=== PATIENT | female | born 1990 | race Caucasian/White ===

== ENCOUNTER 2017-03-12 03:59 | Inpatient (IN) | payer MEDICARE, MEDICAID ==
[~2017-03-12] VITALS: Ht 152.4 cm; Wt 68.0 kg
[2017-03-12 04:28] LABS: KETONES,URINE 3+ (NEGATIVE); LEUKOCYTE ESTERASE ,URINE 3+ (NEGATIVE); NITRITE,URINE POSITIVE (NEGATIVE); PH,URINE 6 (5-9); PROTEIN,URINE 3+ (NEGATIVE); UROBILINOGEN,URINE 4 MG/DL (NORMAL)
--- NOTE | 2017-03-12 04:28 | ED GU-Female ---
General Stated Complaint: POSS UTI,POSS CONSTIPATION Source: patient Exam Limitations: other (NO PREVIOUS VISITS TO THIS HOSPITAL) History of Present Illness Time seen by provider: 04:20 Initial Comments C/O LEFT SIDED ABDOMINAL PAIN / LEFT FLANK PAIN X 1 WEEK HAS SOME URINARY URGENCY, FREQUENCY AND SOME BURNING ON URINATION-HAS BEEN TAKING OTC AZO AND THOSE SYMPTOMS HAVE IMPROVED, BUT ABDOMINAL/FLANK PAIN HAS GOTTEN WORSE NO FEVER, SWEATS OR CHILLS NO NAUSEA/VOMITING NO BM X 2 DAYS, BUT DOES NOT REALLY FEEL CONSTIPATED LMP--UNKNOWN--PT HAS NO IDEA WHEN LMP WAS--"MAYBE MAY--I REALLY HAVE NO IDEA". STATES PERIODS ARE ALWAYS IRREGULAR. NO CONTROL. HAS NOT DONE HOME TEST PT IS AB 0. PCP: NONE Allergies and Home Medications Allergies Coded Allergies: No Known Drug Allergies (Unverified , 03/12/17) Constitutional: no symptoms reported Respiratory: no symptoms reported Cardiovascular: no symptoms reported Gastrointestinal: see HPI, abdominal pain, constipation, No nausea, No vomiting Genitourinary: see HPI, burning, dysuria, frequency, flank pain, urgency Musculoskeletal: see HPI, back pain Skin: no symptoms reported Psychiatric/Neurological: No Symptoms Reported Endocrine: No Symptoms Reported Hematologic/Lymphatic: No Symptoms Reported Past Tijkpss-Rqhrwi-Peycad Hx Patient Social History Alcohol Use: Occasionally Uses Recreational Drug Use: Yes (+IV METH USE, STATES "HAVE USED JUST ABOUT EVERYTHING" INCLUDING COCAINE, RX DRUGS--XANAX, VALIUM, HYDROCODONE, OTHERS. PLUS THC USE. ) Smoking Status: Current Everyday Smoker (1/2 PPD) Recent Foreign Travel: No Contact w/Someone Who Travel: No Surgeries History of Surgeries: Yes ( X 2 ) Surgeries: Section Respiratory History of Respiratory Disorde: No Cardiovascular History of Cardiac Disorders: No Neurological History of Neurological Disord: No Reproductive System Hx : 2 Hx Para: 2 Hx Total # of Abortions (Spona: 0 Hx Reproductive Disorders: Yes (IRREGULAR PERIODS) Female Reproductive Disorders: Menstrual Problems Genitourinary History of Genitourinary Disor: Yes Genitourinary Disorders: Bladder Infection Gastrointestinal History of Gastrointestinal Di: No Musculoskeletal History of Musculoskeletal Dis: No Endocrine History of Endocrine Disorders: No HEENT History of HEENT Disorders: No Cancer History of Cancer: No Psychosocial History of Psychiatric Problem: No Integumentary History of Skin or Integumenta: No Blood Transfusions History of Blood Disorders: No Physical Exam Vital Signs Vital Sign - Last 12Hours 03/12/17 04:11 Temp 99.6 Pulse 119 Resp 20 B/P (MAP) 108/70 Pulse Ox 97 O2 Delivery Room Air Capillary Refill : General Appearance: WD/WN, no apparent distress, other (ANXIOUS, CONSTANT MOVEMENTS, TREMULOUS, SPEECH RAPID. DIRTY, UNKEMPT ) Neck: normal inspection Cardiovascular: no murmur, tachycardia Respiratory: normal breath sounds, no respiratory distress, no accessory muscle use Gastrointestinal: normal bowel sounds, soft, tenderness (SUPRAPUBIC/FUNDAL AND LEFT MID ABDOMEN AND LEFT FLANK TENDERNESS), other (FUNDUS APPEARS TO BE 1 FB BELOW UMBILICUS) Back: CVA tenderness (L) Extremities: no pedal edema, normal capillary refill, other (APPEARS TO HAVE 3 RECENT PUNCTURE SITES TO RIGHT AC WITH BRUISING AROUND EACH, AND VEIN UNDERLYING THESE IS VERY HARD/SCLEROTIC, BUT NON-TENDER. ) Neurologic/Psychiatric: inspector bullet slugs II-XII nml as tested, no motor/sensory deficits, alert, oriented x 3 Skin: normal color, warm/dry Focused Exam Evaluation Lactate Level Laboratory Tests 03/12/17 05:20: Lactic Acid Level 1.39 Lactic Acid Level Laboratory Tests Test 03/12/17 05:20 Lactic Acid Level 1.39 MMOL/L (0.50-2.00) Progress/Results/Core Measures Results/Orders Lab Results Laboratory Tests Test 03/12/17 04:12 03/12/17 04:30 03/12/17 05:20 Range/Units Urine Color YELLOW Urine Clarity VERY CLOUDY H Urine pH 6 5-9 Urine Specific [place] 1.010 L 1.016-1.022 Urine Protein 3+ H NEGATIVE Urine Glucose (UA) NEGATIVE NEGATIVE Urine Ketones 3+ H NEGATIVE Urine Nitrite POSITIVE H NEGATIVE Urine Bilirubin 1+ H NEGATIVE Urine Urobilinogen 4 H NORMAL MG/DL Urine Leukocyte Esterase 3+ H NEGATIVE Urine RBC (Auto) 5+ H NEGATIVE Urine RBC 2-5 H /HPF Urine WBC 25-50 H /HPF Urine Squamous Epithelial Cells 5-10 /HPF Urine Crystals NONE /LPF Urine Bacteria FEW H /HPF Urine Casts NONE /LPF Urine Mucus NEGATIVE /LPF Urine Culture Indicated YES Urine Opiates Screen NEGATIVE NEGATIVE Urine Oxycodone Screen NEGATIVE NEGATIVE Urine Methadone Screen NEGATIVE NEGATIVE Urine Propoxyphene Screen NEGATIVE NEGATIVE Urine Barbiturates Screen NEGATIVE NEGATIVE Ur Tricyclic Antidepressants Screen NEGATIVE NEGATIVE Urine Phencyclidine Screen NEGATIVE NEGATIVE Urine Amphetamines Screen POSITIVE H NEGATIVE Urine Methamphetamines Screen POSITIVE H NEGATIVE Urine Benzodiazepines Screen NEGATIVE NEGATIVE Urine Cocaine Screen NEGATIVE NEGATIVE Urine Cannabinoids Screen POSITIVE H NEGATIVE White Blood Count 27.9 H 4.3-11.0 10^3/uL Red Blood Count 3.59 L 4.35-5.85 10^6/uL Hemoglobin 11.2 L 11.5-16.0 G/DL Hematocrit 31 L 35-52 % Mean Corpuscular Volume 87 80-99 FL Mean Corpuscular Hemoglobin 31 25-34 PG Mean Corpuscular Hemoglobin Concent 36 32-36 G/DL Red Cell Distribution Width 12.7 10.0-14.5 % Platelet Count 276 130-400 10^3/uL Mean Platelet Volume 9.9 7.4-10.4 FL Neutrophils (%) (Auto) 87 H 42-75 % Lymphocytes (%) (Auto) 4 L 12-44 % Monocytes (%) (Auto) 9 0-12 % Eosinophils (%) (Auto) 0 0-10 % Basophils (%) (Auto) 0 0-10 % Neutrophils # (Auto) 24.2 H 1.8-7.8 X 10^3 Lymphocytes # (Auto) 1.1 1.0-4.0 X 10^3 Monocytes # (Auto) 2.6 H 0.0-1.0 X 10^3 Eosinophils # (Auto) 0.0 0.0-0.3 10^3/uL Basophils # (Auto) 0.0 0.0-0.1 10^3/uL Neutrophils % (Manual) 87 % Lymphocytes % (Manual) 1 % Monocytes % (Manual) 7 % Eosinophils % (Manual) 0 % Basophils % (Manual) 0 % Band Neutrophils 5 % Blood Morphology Comment NORMAL Sodium Level 131 L 135-145 MMOL/L Potassium Level 3.4 L 3.6-5.0 MMOL/L Chloride Level 97 L 98-107 MMOL/L Carbon Dioxide Level 20 L 21-32 MMOL/L Anion Gap 14 5-14 MMOL/L Blood Urea Nitrogen 7 7-18 MG/DL Creatinine 0.73 0.60-1.30 MG/DL Estimat Glomerular Filtration Rate > 60 BUN/Creatinine Ratio 10 Glucose Level 100 70-105 MG/DL Calcium Level 8.7 8.5-10.1 MG/DL Total Bilirubin 1.2 H 0.1-1.0 MG/DL Aspartate Amino Transf (AST/SGOT) 19 5-34 U/L Alanine Aminotransferase (ALT/SGPT) 14 0-55 U/L Alkaline Phosphatase 106 40-136 U/L Total Protein 6.6 6.4-8.2 GM/DL Albumin 3.0 L 3.2-4.5 GM/DL Amylase Level 31 25-125 U/L Lipase 8 8-78 U/L Human Chorionic Gonadotropin, Quant [id number] H <5 MIU/ML Lactic Acid Level 1.39 0.50-2.00 MMOL/L My Orders Orders - YASMINE DICKINSON DO Ua Culture If Indicated (03/12/17 04:21) Urine Bedside (03/12/17 04:21) Saline Lock/Iv-Start (03/12/17 04:28) Amylase (03/12/17 04:28) Cbc With Automated Diff (03/12/17 04:28) Comprehensive Metabolic Panel (03/12/17 04:28) Drug Screen Stat (Urine) (03/12/17 04:28) Hcg,Quantitative (03/12/17 04:28) Lipase (03/12/17 04:28) Abo Rh Type (03/12/17 04:28) Urine Culture (03/12/17 04:12) Manual Differential (03/12/17 04:30) Lactic Acid Analyzer (03/12/17 05:02) Blood Culture (03/12/17 05:02) Us Renal Bilateral [id number] (03/12/17 05:04) Ceftriaxone Injection (Rocephin Injectio (03/12/17 05:15) Us Ob Preg Late(14-40wks)[id number] (03/12/17 04:28) Ekg Tracing (03/12/17 05:28) Monitor-Rhythm Ecg Trace Only (03/12/17 05:28) Vital Signs/I&O Vital Sign - Last 12Hours 03/12/17 04:11 Temp 99.6 Pulse 119 Resp 20 B/P (MAP) 108/70 Pulse Ox 97 O2 Delivery Room Air Progress Note : Progress Note URINE HCG + AFTER INITIALLY DENYING ANY HISTORY OF DRUG USE, NOW ADMITS TO DRUG USE, INCLUDING RECENT IV METH USE "A COUPLE OF DAYS AGO", HOWEVER, "TRACK SWIFT" TO RIGHT AC APPEAR TO BE MORE RECENT AND PT'S BEHAVIOR INDICATES MORE RECENT USE. NO DETERIORATION IN PT'S CONDITION DURING ER STAY HEART RATE DOWN <100 AND BP REMAINED IN NORMAL RANGE DURING ER STAY. FHT'S 184 BY DOPPLER ECG Initial ECG Impression Time: 05:36 Initial ECG Rate: 97 Initial ECG Rhythm: Normal Sinus Initial ECG Impression: Normal Initial ECG Comparisson: No Previous ECG Available Diagnostic Imaging Comments RENAL ULTRASOUND--MILD RIGHT HYDRONEPHROSIS, OTHERWISE NO ACUTE PROCESS, PER [facility] REPORT VIA FAX @ [phone] OB ULTRASOUND--NORMAL IUP 18 WEEKS GESTATION, FHR 179--PER [facility] REPORT VIA FAX @ [phone] Reviewed: Reviewed by Me Departure Communication (Admissions) Progress Notes [id number]--SPOKE WITH DR. LONGORIA, FINANCIAL PLANNING ASSISTANT FOR OB UNASSIGNED. ACCEPTS PT FOR ADMIT. ORDERS NOTED Impression Impression: Primary Impression: Sepsis Additional Impressions: Pyelonephritis affecting in second trimester NEW DX OF AT 18 WEEKS GESTATION ILLICIT DRUG USE- IV USE Electrolyte imbalance Disposition: ADMITTED INPATIENT Condition: Stable Admissions Decision to Admit Reason: Admit from ER (General) Decision to Admit/Date: Mar 12, 2017 Time/Decision to Admit Time: 05:10 Departure-Patient Inst. Referrals: NO,LOCAL PHYSICIAN (PCP) Primary Care Physician YASMINE DICKINSON DO Mar 12, 2017 04:28
[2017-03-12 04:35] LABS: BILIRUBIN,URINE 1+ (NEGATIVE)
[2017-03-12 04:36] LABS: WBC,URINE 25-50 /HPF
[2017-03-12 04:45] LABS: BASOPHILS % (AUTO) 0 % (0-10); EOSINOPHILS % (AUTO) 0 % (0-10); LYMPHOCYTES # (AUTO) 1.1 X 10^3 (1.0-4.0); LYMPHOCYTES % (AUTO) 4 % (12-44); MEAN CORPUSCULAR HEMOGLOBIN 31 PG (25-34); MEAN CORPUSCULAR HGB CONC 36 G/DL (32-36); MEAN CORPUSCULAR VOLUME 87 FL (80-99); MEAN PLATELET VOLUME 9.9 FL (7.4-10.4); MONOCYTES # (AUTO) 2.6 X 10^3 (0.0-1.0); MONOCYTES % (AUTO) 9 % (0-12); NEUTROPHILS # (AUTO) 24.2 X 10^3 (1.8-7.8); NEUTROPHILS % (AUTO) 87 % (42-75); PLATELET COUNT 276 10^3/uL (130-400); RED BLOOD COUNT 3.59 10^6/uL (4.35-5.85); RED CELL DISTRIBUTION WIDTH 12.7 % (10.0-14.5); WHITE BLOOD COUNT 27.9 10^3/uL (4.3-11.0)
[2017-03-12 05:08] LABS: ALANINE AMINOTRANSFERASE 14 U/L (0-55); AMYLASE 31 U/L (25-125); ANION GAP 14 MMOL/L (5-14); ASPARTATE AMINO TRANSFERASE 19 U/L (5-34); BILIRUBIN,TOTAL 1.2 MG/DL (0.1-1.0); BLOOD UREA NITROGEN 7 MG/DL (7-18); BUN/CREATININE RATIO 10; CALCIUM 8.7 MG/DL (8.5-10.1); CARBON DIOXIDE 20 MMOL/L (21-32); CHLORIDE 97 MMOL/L (98-107); CREATININE SERUM 0.73 MG/DL (0.60-1.30); GFR ESTIMATED > 60; GLUCOSE 100 MG/DL (70-105); LIPASE 8 U/L (8-78); POTASSIUM 3.4 MMOL/L (3.6-5.0); SODIUM 131 MMOL/L (135-145); TOTAL PROTEIN 6.6 GM/DL (6.4-8.2)
[2017-03-12 05:10] LABS: BAND NEUTROPHILS 5 %; BASOPHILS % (MANUAL) 0 %; EOSINOPHILS % (MANUAL) 0 %; LYMPHOCYTES % (MANUAL) 1 %; NEUTROPHILS % (MANUAL) 87 %
[2017-03-12] MEDS ORDERED: cefTRIAXone INJECTION 2,000 MG in NS (IVPB) 50 ML IV ONE (05:15)
[2017-03-12 06:45] VITALS: BP 117/62
[2017-03-12] MEDS ORDERED: NOREPINEPHRINE 4 MG in D5W 250 ML (IVPB) 250 ML IV SCH (07:01)
[2017-03-12] MEDS ORDERED: NS IV 1000 ML 1,000 ML IV SCH (07:01)
[2017-03-12 08:00] VITALS: BP 95/57
--- NOTE | 2017-03-12 08:14 | Diagnostic Imaging Report ---
INDICATION: UTI, abdominal pain. TECHNIQUE: Multiple real-time grayscale images were obtained over the kidneys in various projections. FINDINGS: The right kidney measures 10.8 x 5.1 x 5.5 cm, and the left kidney measures 12.4 x 5.9 x 5.1 cm. Both kidneys demonstrate normal renal cortical thickness and echogenicity. There is mild right hydronephrosis likely hydronephrosis of . There is no mass or calculi. Neither ureteral jet is visualized in the bladder. IMPRESSION: Mild right hydronephrosis likely hydronephrosis of , otherwise unremarkable sonographic appearance of the kidneys. Dictated by: Dictated on workstation # [id number]
--- NOTE | 2017-03-12 08:17 | Diagnostic Imaging Report ---
INDICATION: Followup. TECHNIQUE: Multiple real-time grayscale images were obtained over the gravid uterus. COMPARISON: None FINDINGS: There is a single living intrauterine . The biometry correlates with gestational age of 18 weeks 0 days. Heart rate is 179 beats per minute. The placenta is posterior. There is no evidence of previa. There are no adnexal masses. There is no free pelvic fluid. IMPRESSION: Single living intrauterine with sonographically estimated gestational age of 18 weeks 0 days and estimated date of confinement 08/13/2017. Biometrical measurements are as follows: Biparietal 3.9 cm, age 17 weeks 6 days. Head circumference 14.8 cm, age 18 weeks 0 days. Abdominal circumference 12.1 cm, age 17 weeks 6 days. Femur length 2.6 cm, age 18 weeks 0 days. Sonographic estimate age: 18 weeks 0 days. Sonographic estimated date of delivery: 08/13/17. Estimated Weight: 212 gm (+/- 30 gm). LMP percentile: n/a%. heart rate: 179 beats per minute. number: 1 of 1. Dictated by: Dictated on workstation # [id number]
[2017-03-12] MEDS: D5 1/2 NS W/KCL 20 MEQ/L 1,000 ML IV SCH ×4 (08:53→22:46)
--- NOTE | 2017-03-12 11:41 | History & Physicial (CHS) ---
HPI History of Present Illness: This is a 26 yo who presented to the ER w/ c/o abdominal and back pain for the past week. Pt was found to be , pt was unaware of . US confirmed 18wk GA viable fetus. UA c/w UTI. Pt UDS positive for meth/amph and THC. ER reported tract whaley in the L antecubital space though pt is adamant that she has never used IV drugs. Pt reports she has used meth, valium and THC. Per ER report has hx of cocaine use as well though pt denies this today. Pt has not had care with with as she did not know she was . Denies movement to date. Source: patient Date seen by provider: Mar 12, 2017 Time Seen by Provider: 09:00 Attending Physician Tad Whalen DO PCP No,Local Physician Consult Date of Admission Mar 12, 2017 at 05:10 Home Medications Home Medications Reviewed patient Home Medication Reconciliation Form Allergies Coded Allergies: No Known Drug Allergies (Unverified , 03/12/17) GKJ-Pinufz-Zivoot Hx Patient Social History Number of Children: 2 Alcohol Use: Occasionally Uses Recreational Drug Use: Yes (+IV METH USE, STATES "HAVE USED JUST ABOUT EVERYTHING" INCLUDING COCAINE, RX DRUGS--XANAX, VALIUM, HYDROCODONE, OTHERS. PLUS THC USE. ) Smoking Status: Current Everyday Smoker (1/2 PPD) Type Used: Cigarettes 2nd Hand Smoke Exposure: No Recent Foreign Travel: No Contact w/other who traveled: No Recent Hopitalizations: No Recent Infectious Disease Expo: No Past Medical History Hx of hypothyroidism - pt reports she use to take Synthroid but has not taken for several years, TSH not recently checked. Illicit drug use - currently positive for meth/amph, THC PSH: C/S x 2 Review of Systems (CHC) Constitutional: fever EENTM: dental problems Respiratory: no symptoms reported Cardiovascular: no symptoms reported Gastrointestinal: abdominal pain (generalized), No nausea, No vomiting Genitourinary: No dysuria, No frequency, other (flank pain L>R) : Yes (18 wk by US) Musculoskeletal: back pain Skin: no symptoms reported Psychiatric/Neurological: Anxiety Reviewed Test Results Reviewed Test Results Lab Laboratory Tests 03/12/17 04:12: Urine Color YELLOW, Urine Clarity VERY CLOUDYH, Urine pH 6, Urine Specific [place] 1.010L, Urine Protein 3+H, Urine Glucose (UA) NEGATIVE, Urine Ketones 3+ H, Urine Nitrite POSITIVEH, Urine Bilirubin 1+H, Urine Urobilinogen 4H, Urine Leukocyte Esterase 3+H, Urine RBC (Auto) 5+H, Urine RBC 2-5H, Urine WBC 25-50H, Urine Squamous Epithelial Cells 5-10, Urine Crystals NONE, Urine Bacteria FEWH, Urine Casts NONE, Urine Mucus NEGATIVE, Urine Culture Indicated YES, Urine Opiates Screen NEGATIVE, Urine Oxycodone Screen NEGATIVE, Urine Methadone Screen NEGATIVE, Urine Propoxyphene Screen NEGATIVE, Urine Barbiturates Screen NEGATIVE, Ur Tricyclic Antidepressants Screen NEGATIVE, Urine Phencyclidine Screen NEGATIVE, Urine Amphetamines Screen POSITIVEH, Urine Methamphetamines Screen POSITIVEH, Urine Benzodiazepines Screen NEGATIVE, Urine Cocaine Screen NEGATIVE, Urine Cannabinoids Screen POSITIVEH 03/12/17 04:30: White Blood Count 27.9H, Red Blood Count 3.59L, Hemoglobin 11.2L, Hematocrit 31L , Mean Corpuscular Volume 87, Mean Corpuscular Hemoglobin 31, Mean Corpuscular Hemoglobin Concent 36, Red Cell Distribution Width 12.7, Platelet Count 276, Mean Platelet Volume 9.9, Neutrophils (%) (Auto) 87H, Lymphocytes (%) (Auto) 4L , Monocytes (%) (Auto) 9, Eosinophils (%) (Auto) 0, Basophils (%) (Auto) 0, Neutrophils # (Auto) 24.2H, Lymphocytes # (Auto) 1.1, Monocytes # (Auto) 2.6H, Eosinophils # (Auto) 0.0, Basophils # (Auto) 0.0, Neutrophils % (Manual) 87, Lymphocytes % (Manual) 1, Monocytes % (Manual) 7, Eosinophils % (Manual) 0, Basophils % (Manual) 0, Band Neutrophils 5, Blood Morphology Comment NORMAL, Sodium Level 131L, Potassium Level 3.4L, Chloride Level 97L, Carbon Dioxide Level 20L, Anion Gap 14, Blood Urea Nitrogen 7, Creatinine 0.73, Estimat Glomerular Filtration Rate > 60, BUN/Creatinine Ratio 10, Glucose Level 100, Calcium Level 8.7, Total Bilirubin 1.2H, Aspartate Amino Transf (AST/SGOT) 19, Alanine Aminotransferase (ALT/SGPT) 14, Alkaline Phosphatase 106, Total Protein 6.6, Albumin 3.0L, Amylase Level 31, Lipase 8, Human Chorionic Gonadotropin, Quant [id number] 03/12/17 05:20: Lactic Acid Level 1.39 Radiology Date of Exam: 03/12/17 US OB PREG LATE([id number] INDICATION: Followup. TECHNIQUE: Multiple real-time grayscale images were obtained over the gravid uterus. COMPARISON: None FINDINGS: There is a single living intrauterine . The biometry correlates with gestational age of 18 weeks 0 days. Heart rate is 179 beats per minute. The placenta is posterior. There is no evidence of previa. There are no adnexal masses. There is no free pelvic fluid. IMPRESSION: Single living intrauterine with sonographically estimated gestational age of 18 weeks 0 days and estimated date of confinement 08/13/2017. Biometrical measurements are as follows: Biparietal 3.9 cm, age 17 weeks 6 days. Head circumference 14.8 cm, age 18 weeks 0 days. Abdominal circumference 12.1 cm, age 17 weeks 6 days. Femur length 2.6 cm, age 18 weeks 0 days. Sonographic estimate age: 18 weeks 0 days. Sonographic estimated date of delivery: 08/13/17. Estimated Weight: 212 gm (+/- 30 gm). LMP percentile: n/a%. heart rate: 179 beats per minute. number: 1 of 1. Date of Exam: 03/12/17 US RENAL BILATERAL [id number] INDICATION: UTI, abdominal pain. TECHNIQUE: Multiple real-time grayscale images were obtained over the kidneys in various projections. FINDINGS: The right kidney measures 10.8 x 5.1 x 5.5 cm, and the left kidney measures 12.4 x 5.9 x 5.1 cm. Both kidneys demonstrate normal renal cortical thickness and echogenicity. There is mild right hydronephrosis likely hydronephrosis of . There is no mass or calculi. Neither ureteral jet is visualized in the bladder. IMPRESSION: Mild right hydronephrosis likely hydronephrosis of , otherwise unremarkable sonographic appearance of the kidneys. Physical Exam-(CHC) Physical Exam Vital Signs VS - Last 72 Hours, by Label 9/5/17 9/5/17 9/5/17 9/5/17 04:11 06:34 06:34 06:45 Temp 99.6 99.6 99.6 99.3 Pulse 119 96 96 77 Resp 20 20 20 19 B/P (MAP) 108/70 108/70 117/62 Pulse Ox 97 97 97 94 O2 Delivery Room Air Room Air Room Air Room Air 03/12/17 03/12/17 03/12/17 03/12/17 08:00 08:33 12:00 13:00 Temp 97.1 102.2 Pulse 103 103 103 105 Resp 20 24 B/P (MAP) 95/57 98/66 Pulse Ox 99 99 O2 Delivery Room Air Room Air 03/12/17 03/12/17 03/12/17 03/13/17 16:00 19:00 20:00 00:00 Temp 97.3 96.6 101.1 Pulse 86 90 94 107 Resp 21 23 20 B/P (MAP) 93/60 85/57 110/55 Pulse Ox 99 100 92 O2 Delivery Room Air Room Air Room Air 03/13/17 03/13/17 03/13/17 03/13/17 00:39 01:00 04:00 07:05 Temp 101.1 95.7 Pulse 104 87 93 Resp 18 B/P (MAP) 96/52 Pulse Ox 90 O2 Delivery Room Air 03/13/17 08:00 Temp 97.0 Pulse 93 Resp 20 B/P (MAP) 101/66 Pulse Ox 98 O2 Delivery Room Air Capillary Refill : Less Than 3 Seconds General Appearance: WD/WN, no apparent distress (anxious/irritable) Respiratory: lungs clear, normal breath sounds Cardiovascular: regular rate, rhythm Gastrointestinal: normal bowel sounds, non tender, soft Back: no CVA tenderness Extremities: no pedal edema Neurologic/Psychiatric: alert, oriented x 3, other (anxious/irritable) Skin: normal color, warm/dry Assessment/Plan Assessment/Plan Admission Dx 1. Pyelonephritis 2. - 18 wk GA 3. Illicit drug use Plan 1. Pyelonephritis meeting sepsis criteria w/ leukocytosis, fever, tachycardia - Started on Rocephin IV on admission - Lactic acid wnl; BP normal for 2. - 18 wk GA - unknown at time of presentation - US confirmed viable, 18 wk fetus - will schedule w/ OB on DC as pt is repeat c/s 3. Illicit drug use - Discussed [facility] Addiction [facility] - pt is interested in treatment. - Pt adamantly denies IVDU; tract whaley reported by ER staff, pt stating the whaley were from blood draw attempts in the ER - HIV, Hep C pending - Passenger Conductor consulted. Diagnosis/Problems: Clinical Quality Measures DVT/VTE Risk/Contraindication: RFS Level Per Nursing on Admit: 2=Moderate Risk Score Comment: SCDs ordered, pt not a candidate for Lovenox due to TAD WHALEN DO Mar 12, 2017 11:41
[2017-03-12 12:00] VITALS: BP 98/66
[2017-03-12] MEDS: ACETAMINOPHEN 500 MG TAB (TYLENOL) PO PRN (13:02)
[2017-03-12 16:00] VITALS: BP 93/60
[2017-03-12 20:00] VITALS: BP 85/57
[2017-03-13] VITALS: BP 110/55
[2017-03-13] MEDS: ACETAMINOPHEN 500 MG TAB (TYLENOL) PO PRN (00:39)
[2017-03-13 04:00] VITALS: BP 96/52
[2017-03-13 06:01] LABS: BASOPHILS % (AUTO) 0 % (0-10); EOSINOPHILS % (AUTO) 0 % (0-10); LYMPHOCYTES % (AUTO) 6 % (12-44); MEAN CORPUSCULAR HEMOGLOBIN 30 PG (25-34); MEAN CORPUSCULAR HGB CONC 34 G/DL (32-36); MEAN CORPUSCULAR VOLUME 90 FL (80-99); MEAN PLATELET VOLUME 10.3 FL (7.4-10.4); MONOCYTES # (AUTO) 1.3 X 10^3 (0.0-1.0); MONOCYTES % (AUTO) 8 % (0-12); NEUTROPHILS # (AUTO) 14.1 X 10^3 (1.8-7.8); NEUTROPHILS % (AUTO) 86 % (42-75); PLATELET COUNT 262 10^3/uL (130-400); RED BLOOD COUNT 3.22 10^6/uL (4.35-5.85); RED CELL DISTRIBUTION WIDTH 12.8 % (10.0-14.5); WHITE BLOOD COUNT 16.5 10^3/uL (4.3-11.0)
[2017-03-13] MEDS: D5 1/2 NS W/KCL 20 MEQ/L 1,000 ML IV SCH ×2 (06:06→15:15)
[2017-03-13 06:23] LABS: ALANINE AMINOTRANSFERASE 14 U/L (0-55); ALBUMIN 2.6 GM/DL (3.2-4.5); ANION GAP 10 MMOL/L (5-14); ASPARTATE AMINO TRANSFERASE 16 U/L (5-34); BILIRUBIN,TOTAL 0.4 MG/DL (0.1-1.0); BLOOD UREA NITROGEN 6 MG/DL (7-18); BUN/CREATININE RATIO 10; CALCIUM 8.5 MG/DL (8.5-10.1); CARBON DIOXIDE 20 MMOL/L (21-32); CHLORIDE 106 MMOL/L (98-107); CREATININE SERUM 0.63 MG/DL (0.60-1.30); GFR ESTIMATED > 60; GLUCOSE 79 MG/DL (70-105); POTASSIUM 3.3 MMOL/L (3.6-5.0); SODIUM 136 MMOL/L (135-145); TOTAL PROTEIN 5.9 GM/DL (6.4-8.2)
[2017-03-13] MEDS ORDERED: cefTRIAXone INJECTION 1,000 MG in NS (IVPB) 50 ML IV SCH (07:00)
[2017-03-13 07:49] LABS: HIV AG AB SCREEN Non-Reactive (Non-Reactive)
[2017-03-13 07:50] LABS: HCV INDEX >11.00 Index (0.00-0.79)
[2017-03-13 08:00] VITALS: BP 101/66
[2017-03-13] MEDS ORDERED: KCL 20 MEQ TAB (K-DUR) PO NR (09:00)
[2017-03-13] MEDS ORDERED: PRENATAL VITAMIN 1 EA TAB PO SCH (09:00)
[2017-03-13] MEDS ORDERED: FERROUS SULF 325 MG (IRON) TAB PO SCH (09:00)
[2017-03-13] MEDS ORDERED: CATHETER FLUSH 10 ML SYR IV PRN (09:15)
--- NOTE | 2017-03-13 09:37 | Progress Note (SOAP) ---
Subjective Subjective/Events-last exam Pt much improved this am. Less agitated, states she is feeling much better. Tmax 101 overnight. Review of Systems Date Seen by Provider: Mar 13, 2017 Time Seen by Provider: 09:00 Objective Exam Last Set of Vital Signs Vital Signs Date Time Temp Pulse Resp B/P (MAP) Pulse Ox O2 Delivery O2 Flow Rate FiO2 03/13/17 08:00 97.0 93 20 101/66 98 Room Air Capillary Refill : Less Than 3 Seconds I&O Intake and Output 03/14/17 00:00 Intake Total 800 ml Balance 800 ml Intake Oral 800 ml # Voids 8 # Bowel Movements 2 General: Alert, Oriented X3, Cooperative Psych/Mental Status: Mood NL Results/Procedures Lab Laboratory Tests 03/13/17 05:38: White Blood Count 16.5H, Red Blood Count 3.22L, Hemoglobin 9.8L, Hematocrit 29L , Mean Corpuscular Volume 90, Mean Corpuscular Hemoglobin 30, Mean Corpuscular Hemoglobin Concent 34, Red Cell Distribution Width 12.8, Platelet Count 262, Mean Platelet Volume 10.3, Neutrophils (%) (Auto) 86H, Lymphocytes (%) (Auto) 6L , Monocytes (%) (Auto) 8, Eosinophils (%) (Auto) 0, Basophils (%) (Auto) 0, Neutrophils # (Auto) 14.1H, Lymphocytes # (Auto) 1.0, Monocytes # (Auto) 1.3H, Eosinophils # (Auto) 0.0, Basophils # (Auto) 0.0, Sodium Level 136, Potassium Level 3.3L, Chloride Level 106, Carbon Dioxide Level 20L, Anion Gap 10, Blood Urea Nitrogen 6L, Creatinine 0.63, Estimat Glomerular Filtration Rate > 60, BUN/ Creatinine Ratio 10, Glucose Level 79, Calcium Level 8.5, Magnesium Level 1.7L, Total Bilirubin 0.4, Aspartate Amino Transf (AST/SGOT) 16, Alanine Aminotransferase (ALT/SGPT) 14, Alkaline Phosphatase 108, Total Protein 5.9L, Albumin 2.6L Microbiology 03/12/17 Urine Culture - Final, Complete Escherichia Coli Radiology Date of Exam: 03/12/17 US OB PREG LATE([id number] INDICATION: Followup. TECHNIQUE: Multiple real-time grayscale images were obtained over the gravid uterus. COMPARISON: None FINDINGS: There is a single living intrauterine . The biometry correlates with gestational age of 18 weeks 0 days. Heart rate is 179 beats per minute. The placenta is posterior. There is no evidence of previa. There are no adnexal masses. There is no free pelvic fluid. IMPRESSION: Single living intrauterine with sonographically estimated gestational age of 18 weeks 0 days and estimated date of confinement 08/13/2017. Biometrical measurements are as follows: Biparietal 3.9 cm, age 17 weeks 6 days. Head circumference 14.8 cm, age 18 weeks 0 days. Abdominal circumference 12.1 cm, age 17 weeks 6 days. Femur length 2.6 cm, age 18 weeks 0 days. Sonographic estimate age: 18 weeks 0 days. Sonographic estimated date of delivery: 08/13/17. Estimated Weight: 212 gm (+/- 30 gm). LMP percentile: n/a%. heart rate: 179 beats per minute. number: 1 of 1. Date of Exam: 03/12/17 US RENAL BILATERAL [id number] INDICATION: UTI, abdominal pain. TECHNIQUE: Multiple real-time grayscale images were obtained over the kidneys in various projections. FINDINGS: The right kidney measures 10.8 x 5.1 x 5.5 cm, and the left kidney measures 12.4 x 5.9 x 5.1 cm. Both kidneys demonstrate normal renal cortical thickness and echogenicity. There is mild right hydronephrosis likely hydronephrosis of . There is no mass or calculi. Neither ureteral jet is visualized in the bladder. IMPRESSION: Mild right hydronephrosis likely hydronephrosis of , otherwise unremarkable sonographic appearance of the kidneys. Assessment/Plan Assessment/Plan Admission Dx 1. Pyelonephritis 2. - 18 wk GA 3. Illicit drug use Plan 1. Pyelonephritis meeting sepsis criteria w/ leukocytosis, fever, tachycardia; E. coli on urine culture ADM- Started on Rocephin IV on admission - Lactic acid wnl; BP normal for 03/13 - pt improving - wbc down to 16; fever overnight; E. coli sensitive to Rocephin - continue IV antibx until fever free then change to Macrobid po for DC 2. - 18 wk GA - unknown at time of presentation - US confirmed viable, 18 wk fetus - PNV started - will schedule w/ OB on DC as pt is repeat c/s 3. Illicit drug use - Discussed [facility] Addiction Treatment Program - pt is interested in treatment. - Pt adamantly denies IVDU; tract whaley reported by ER staff, pt stating the whaley were from blood draw attempts in the ER - HIV, Hep C pending - Clinical Evaluator consulted. 03/13 - pt very interested in ATS program at [facility] - will arrange intake on DC 4. Hep C Antibody positive; LFT wnl 03/13 - discussed results w/ patient. Will obtain quant to determine if active Hep C infection 5. Anemia of 03/13 - start iron 6. Hypokalemia 03/13 - KCL po, check magnesium. 7. Hx of Hypothyroidism - check TSH 8. Anxiety - pt interested in Behavioral Health Services 9. Poor dentition - will scheduled w/ [facility] Dental at DC Diagnosis/Problems: Clinical Quality Measures DVT/VTE Risk/Contraindication: Risk Factor Score Per Nursin RFS Level Per Nursing on Admit: 2=Moderate Risk Score Comment: SCDs ordered, pt not a candidate for Lovenox due to TAD WHALEN DO Mar 13, 2017 09:37
[2017-03-13 12:00] VITALS: BP 100/58
[2017-03-13 16:36] VITALS: BP 110/62
[2017-03-15 15:12] LABS: HEPATITIS C LOG ML 2.96 Log/mL (<=1.07)
== END 2017-03-13 16:55 | disposition home or self-care (01) | DRG 781 ==
LOC: ER 04:05 → 4TH 05:10
PROVIDERS: ADMIT Family Medicine; ATTEND Family Medicine
DX: O98.812 Other maternal infectious and parasitic diseases complicating pregnancy, second trimester (principal); O23.02 Infections of kidney in pregnancy, second trimester; A41.9 Sepsis, unspecified organism; N12 Tubulo-interstitial nephritis, not specified as acute or chronic; O34.211 Maternal care for low transverse scar from previous cesarean delivery; F15.90 Other stimulant use, unspecified, uncomplicated; F12.90 Cannabis use, unspecified, uncomplicated; O99.012 Anemia complicating pregnancy, second trimester; O99.282 Endocrine, nutritional and metabolic diseases complicating pregnancy, second trimester; E03.9 Hypothyroidism, unspecified; O99.332 Smoking (tobacco) complicating pregnancy, second trimester; F17.210 Nicotine dependence, cigarettes, uncomplicated; E87.6 Hypokalemia; O99.342 Other mental disorders complicating pregnancy, second trimester; F41.9 Anxiety disorder, unspecified; Z3A.18 18 weeks gestation of pregnancy
CPT/HCPCS: 36415; 76770; 76805; 80053; 80074; 80306; 81000; 82150; 83605; 83690; 83735; 84443; 84702; 84703; 85007; 85025; 85027; 86703; 86900; 86901; 87040; 87088; 87186; 87522; 93005; 93041; 96374

== ENCOUNTER 2017-06-28 16:56 | Outpatient (CLI) | payer MEDICAID, MEDICARE ==
[~2017-06-28] VITALS: Ht 152.4 cm; Wt 68.5 kg
[2017-06-28 17:15] VITALS: BP 114/82
[2017-06-28] MEDS ORDERED: D5 LR IV SOLUTION 1,000 ML IV SCH (18:00)
[2017-06-28] MEDS ORDERED: NS IV 500 ML 500 ML IV ONE (18:00)
[2017-06-28] MEDS ORDERED: ONDANSETRON 4 MG/2 ML (SDV) Z0FRAN IVP ONE (18:00)
[2017-06-28 18:44] LABS: BASOPHILS % (AUTO) 0 % (0-10); EOSINOPHILS % (AUTO) 0 % (0-10); LYMPHOCYTES # (AUTO) 1.3 X 10^3 (1.0-4.0); LYMPHOCYTES % (AUTO) 7 % (12-44); MEAN CORPUSCULAR HEMOGLOBIN 27 PG (25-34); MEAN CORPUSCULAR HGB CONC 33 G/DL (32-36); MEAN CORPUSCULAR VOLUME 81 FL (80-99); MEAN PLATELET VOLUME 10.3 FL (7.4-10.4); MONOCYTES # (AUTO) 0.5 X 10^3 (0.0-1.0); MONOCYTES % (AUTO) 3 % (0-12); NEUTROPHILS # (AUTO) 17.7 X 10^3 (1.8-7.8); NEUTROPHILS % (AUTO) 91 % (42-75); PLATELET COUNT 655 10^3/uL (130-400); RED BLOOD COUNT 4.42 10^6/uL (4.35-5.85); RED CELL DISTRIBUTION WIDTH 13.7 % (10.0-14.5); WHITE BLOOD COUNT 19.5 10^3/uL (4.3-11.0)
[2017-06-28 19:02] LABS: BAND NEUTROPHILS 4 %; BASOPHILS % (MANUAL) 0 %; EOSINOPHILS % (MANUAL) 0 %; LYMPHOCYTES % (MANUAL) 4 %; NEUTROPHILS % (MANUAL) 88 %
[2017-06-28 19:07] LABS: ALANINE AMINOTRANSFERASE 58 U/L (0-55); ALBUMIN 3.3 GM/DL (3.2-4.5); ANION GAP 17 MMOL/L (5-14); ASPARTATE AMINO TRANSFERASE 49 U/L (5-34); BILIRUBIN,TOTAL 0.4 MG/DL (0.1-1.0); BLOOD UREA NITROGEN 16 MG/DL (7-18); BUN/CREATININE RATIO 24; CALCIUM 9.8 MG/DL (8.5-10.1); CARBON DIOXIDE 16 MMOL/L (21-32); CHLORIDE 104 MMOL/L (98-107); CREATININE SERUM 0.68 MG/DL (0.60-1.30); GFR ESTIMATED > 60; GLUCOSE 84 MG/DL (70-105); POTASSIUM 4.7 MMOL/L (3.6-5.0); SODIUM 137 MMOL/L (135-145); TOTAL PROTEIN 8.6 GM/DL (6.4-8.2)
[2017-06-28 20:00] VITALS: BP 106/64
[2017-06-28 21:14] LABS: BILIRUBIN,URINE NEGATIVE (NEGATIVE); KETONES,URINE 4+ (NEGATIVE); LEUKOCYTE ESTERASE ,URINE 3+ (NEGATIVE); NITRITE,URINE POSITIVE (NEGATIVE); PH,URINE 6.5 (5-9); PROTEIN,URINE 2+ (NEGATIVE); UROBILINOGEN,URINE 1 MG/DL (NORMAL)
[2017-06-28 21:22] LABS: WBC,URINE 50-100 /HPF
[2017-06-28] MEDS ORDERED: cefTRIAXone INJECTION 1,000 MG in NS (IVPB) 50 ML IV ONE (22:15)
[2017-06-28] MEDS ORDERED: cefTRIAXone 1 GM (ROCEPHIN) VIAL ONE (22:21)
[2017-06-28] MEDS ORDERED: NS (IVPB) 50 ML ONE (22:22)
[2017-06-29 07:31] LABS: BASOPHILS % (AUTO) 0 % (0-10); EOSINOPHILS % (AUTO) 0 % (0-10); LYMPHOCYTES # (AUTO) 1.3 X 10^3 (1.0-4.0); LYMPHOCYTES % (AUTO) 10 % (12-44); MEAN CORPUSCULAR HEMOGLOBIN 27 PG (25-34); MEAN CORPUSCULAR HGB CONC 33 G/DL (32-36); MEAN CORPUSCULAR VOLUME 82 FL (80-99); MEAN PLATELET VOLUME 10.3 FL (7.4-10.4); MONOCYTES % (AUTO) 8 % (0-12); NEUTROPHILS # (AUTO) 10.3 X 10^3 (1.8-7.8); NEUTROPHILS % (AUTO) 82 % (42-75); PLATELET COUNT 541 10^3/uL (130-400); RED BLOOD COUNT 3.62 10^6/uL (4.35-5.85); RED CELL DISTRIBUTION WIDTH 13.6 % (10.0-14.5); WHITE BLOOD COUNT 12.6 10^3/uL (4.3-11.0)
[2017-06-29 08:10] VITALS: BP 90/52
[2017-06-29] MEDS ORDERED: CEPH250C PO (09:35)
--- NOTE | 2017-06-29 09:40 | History & Physical-OB ---
OB - Chief Complaint & HPI Date/Time Date of Admission: Date of Admission: Time Seen by Provider: 09:00 Chief Complaint/History OB-Reason for Admission/Chief: Hx : 3 Hx Para: 2 Expected Date of Delivery: Aug 16, 2017 Gestational Age in Weeks: 33 Other reason for admission: this 26-year-old female presented last night with acute onset nausea vomiting. She was also noted to have an elevated white count, and a urine dipstick suggestive of urinary tract infection. She reports this morning that she is feeling much better and is able to tolerate oral hydration and crackers. She has been not using the bathroom. She reports almost complete resolution of the nausea she was having yesterday. She is asking for discharge as she is feeling much better Admission Nurse Assessment Rev: Yes History of Labs A pos Antibody neg RI RPR NR HBsAg NR HIV NR GC neg GBS unknown Allergies and Home Medications Allergies Coded Allergies: No Known Drug Allergies (Unverified , 03/12/17) Home Medications Cephalexin 250 Mg Capsule, 500 MG PO QID for 7 Days, #28 Prescribed by: MONSE BALES on 06/29/17 0935 OB - History Hx of Present Care: Yes Ultrasounds: Other (late care, ultrasound ordered) Obstetrical Complications: Other (late care) Medical Complications: Other Other Concerns: hepatitis C, polysubstance abuse Obstetrical History Hx : 3 Hx Para: 2 Patient Past Medical History Hx of hypothyroidism - pt reports she use to take Synthroid but has not taken for several years, TSH not recently checked. Illicit drug use - currently positive for meth/amph, THC PSH: C/S x 2 Social History/Family History Recent Infectious Disease Expo: No 2nd Hand Smoke Exposure: No OB - Admission Exam Physical Exam Vitals: Vital Signs 06/28/17 06/29/17 20:00 01:11 Temp 98.6 Pulse 90 Resp 18 B/P (MAP) 106/64 (78) O2 Delivery Room Air HEENT: NCAT Heart: Rhythm Normal Lungs: Clear Abdomen: Gravid Extremities: Normal Reflexes: Normal Membranes: Intact Heart Rate: 130's Accelerations: Accelerations Present Decelerations: No Decelerations Short Term Variability: Present [facility] Variability: Average (6-25) Contractions on Admission: >10 Minutes Apart Intensity: Mild (patient does not appreciate rare mild contractions) Labs Laboratory Tests Test 06/28/17 18:32 06/28/17 21:00 06/29/17 07:04 Range/Units White Blood Count 19.5 H 12.6 H 4.3-11.0 10^3/uL Red Blood Count 4.42 3.62 L 4.35-5.85 10^6/uL Hemoglobin 11.7 9.7 L 11.5-16.0 G/DL Hematocrit 36 30 L 35-52 % Mean Corpuscular Volume 81 82 80-99 FL Mean Corpuscular Hemoglobin 27 27 25-34 PG Mean Corpuscular Hemoglobin Concent 33 33 32-36 G/DL Red Cell Distribution Width 13.7 13.6 10.0-14.5 % Platelet Count 655 H 541 H 130-400 10^3/uL Mean Platelet Volume 10.3 10.3 7.4-10.4 FL Neutrophils (%) (Auto) 91 H 82 H 42-75 % Lymphocytes (%) (Auto) 7 L 10 L 12-44 % Monocytes (%) (Auto) 3 8 0-12 % Eosinophils (%) (Auto) 0 0 0-10 % Basophils (%) (Auto) 0 0 0-10 % Neutrophils # (Auto) 17.7 H 10.3 H 1.8-7.8 X 10^3 Lymphocytes # (Auto) 1.3 1.3 1.0-4.0 X 10^3 Monocytes # (Auto) 0.5 1.0 0.0-1.0 X 10^3 Eosinophils # (Auto) 0.0 0.0 0.0-0.3 10^3/uL Basophils # (Auto) 0.0 0.0 0.0-0.1 10^3/uL Neutrophils % (Manual) 88 % Lymphocytes % (Manual) 4 % Monocytes % (Manual) 4 % Eosinophils % (Manual) 0 % Basophils % (Manual) 0 % Band Neutrophils 4 % Blood Morphology Comment NORMAL Sodium Level 137 135-145 MMOL/L Potassium Level 4.7 3.6-5.0 MMOL/L Chloride Level 104 98-107 MMOL/L Carbon Dioxide Level 16 L 21-32 MMOL/L Anion Gap 17 H 5-14 MMOL/L Blood Urea Nitrogen 16 7-18 MG/DL Creatinine 0.68 0.60-1.30 MG/DL Estimat Glomerular Filtration Rate > 60 BUN/Creatinine Ratio 24 Glucose Level 84 70-105 MG/DL Calcium Level 9.8 8.5-10.1 MG/DL Total Bilirubin 0.4 0.1-1.0 MG/DL Aspartate Amino Transf (AST/SGOT) 49 H 5-34 U/L Alanine Aminotransferase (ALT/SGPT) 58 H 0-55 U/L Alkaline Phosphatase 267 H 40-136 U/L Total Protein 8.6 H 6.4-8.2 GM/DL Albumin 3.3 3.2-4.5 GM/DL Urine Color YELLOW Urine Clarity SLIGHTLY CLOUDY Urine pH 6.5 5-9 Urine Specific [place] 1.015 L 1.016-1.022 Urine Protein 2+ H NEGATIVE Urine Glucose (UA) NEGATIVE NEGATIVE Urine Ketones 4+ H NEGATIVE Urine Nitrite POSITIVE H NEGATIVE Urine Bilirubin NEGATIVE NEGATIVE Urine Urobilinogen 1 NORMAL MG/DL Urine Leukocyte Esterase 3+ H NEGATIVE Urine RBC (Auto) 1+ H NEGATIVE Urine RBC 0-2 /HPF Urine WBC 50-100 H /HPF Urine Crystals NONE /LPF Urine Bacteria LARGE H /HPF Urine Casts NONE /LPF Urine Mucus NEGATIVE /LPF Urine Culture Indicated YES Urine Opiates Screen NEGATIVE NEGATIVE Urine Oxycodone Screen NEGATIVE NEGATIVE Urine Methadone Screen NEGATIVE NEGATIVE Urine Propoxyphene Screen NEGATIVE NEGATIVE Urine Barbiturates Screen NEGATIVE NEGATIVE Ur Tricyclic Antidepressants Screen NEGATIVE NEGATIVE Urine Phencyclidine Screen NEGATIVE NEGATIVE Urine Amphetamines Screen NEGATIVE NEGATIVE Urine Methamphetamines Screen NEGATIVE NEGATIVE Urine Benzodiazepines Screen POSITIVE H NEGATIVE Urine Cocaine Screen NEGATIVE NEGATIVE Urine Cannabinoids Screen POSITIVE H NEGATIVE OB - Assessment/Plan/Diagnosis Assessment Assessment: observation Plan Other Plan continue the patient on oral Keflex 500 mg 4 times a day for 7 days. labor precautions reviewed Patient told to return to care if symptoms recur or if any further concerns should arise She has a follow-up appointment scheduled for next week in the office Discharge Diagnosis Diagnosis: 26-year-old at 33 weeks gestation Acute gastroenteritis-improved Urinary tract infection History of polysubstance abuse with positive UDS today Hepatitis C carrier MONSE BALES DO Jun 29, 2017 9:40 am
[2017-06-29] MEDS ORDERED: CEPHALEXIN 250 MG (KEFLEX) CAP PO SCH (13:00)
== END 2017-06-29 10:15 ==
LOC: WSo 16:56 → LDRP 16:57 → WSo 06-29 10:15
PROVIDERS: ATTEND Obstetrics & Gynecology
DX: O99.613 Diseases of the digestive system complicating pregnancy, third trimester (principal); K52.9 Noninfective gastroenteritis and colitis, unspecified; O23.43 Unspecified infection of urinary tract in pregnancy, third trimester; O99.323 Drug use complicating pregnancy, third trimester; F15.10 Other stimulant abuse, uncomplicated; F12.10 Cannabis abuse, uncomplicated; O99.283 Endocrine, nutritional and metabolic diseases complicating pregnancy, third trimester; E03.9 Hypothyroidism, unspecified; O98.413 Viral hepatitis complicating pregnancy, third trimester; B19.20 Unspecified viral hepatitis C without hepatic coma; O09.33 Supervision of pregnancy with insufficient antenatal care, third trimester; O34.219 Maternal care for unspecified type scar from previous cesarean delivery; Z3A.33 33 weeks gestation of pregnancy
CPT/HCPCS: 36415; 80053; 80306; 81000; 85007; 85025; 85027; 87088; 87186; 87804; 96361; 96374; 96375; 99214

== ENCOUNTER 2017-08-04 09:58 | Outpatient (CLI) | payer MEDICARE ==
[~2017-08-04] VITALS: Ht 152.4 cm; Wt 73.9 kg
[~2017-08-04 09:58] MED LIST: CEPH250C PO
[2017-08-04 10:19] VITALS: BP 108/69
[2017-08-04 10:42] LABS: BILIRUBIN,URINE NEGATIVE (NEGATIVE); CLARITY,URINE SLIGHTLY CLOUDY; COLOR,URINE YELLOW; GLUCOSE, URINE (UA) NEGATIVE (NEGATIVE); KETONES,URINE NEGATIVE (NEGATIVE); LEUKOCYTE ESTERASE ,URINE 1+ (NEGATIVE); NITRITE,URINE NEGATIVE (NEGATIVE); PH,URINE 6 (5-9); PROTEIN,URINE 1+ (NEGATIVE); UROBILINOGEN,URINE NORMAL (NORMAL)
[2017-08-04 10:45] VITALS: BP 111/69
[2017-08-04 11:18] LABS: BACTERIA,URINE FEW /HPF; WBC,URINE RARE /HPF
[2017-08-04] MEDS ORDERED: INFLUENZA TRIvalent 2017-2018 0.5 ML/45 MCG SYR IM ONE (11:45)
[2017-08-04 13:34] LABS: AMPHETAMINE SCREEN, URINE NEGATIVE (NEGATIVE); BARBITURATE SCREEN URINE NEGATIVE (NEGATIVE); BENZODIAZEPINES SCREEN URINE POSITIVE (NEGATIVE); CANNABINOID SCREEN, URINE POSITIVE (NEGATIVE); COCAINE SCREEN URINE NEGATIVE (NEGATIVE); METHADONE STAT NEGATIVE (NEGATIVE); METHAMPHETAMINE SCREEN URINE S NEGATIVE (NEGATIVE); OPIATE SCREEN URINE NEGATIVE (NEGATIVE); OXYCODONE STAT NEGATIVE (NEGATIVE); PROPOXYPHENE STAT NEGATIVE (NEGATIVE); TRICYCLIC ANTIDEPRESSANTS SCRE NEGATIVE (NEGATIVE)
--- NOTE | 2017-08-05 14:14 | Physician Query-Final Dx ---
SHAUNNA HIDALGO 08/05/17 1414: Clinic Account Progress/Dx Physician Query: Please give diagnosis Date of Service Aug 04, 2017 at 09:58 ROSELIA BRAVO DO 08/19/17 1914: Clinic Account Progress/Dx DIAGNOSIS: Diagnosis , threatened rupture of membranes vaginal discharge GWENSHAUNNA Aug 05, 2017 14:14 ROSELIA BRAVO DO Aug 19, 2017 19:14
[2017-08-07] MEDS ORDERED: ACHD5005 PO (08:20)
[2017-08-07] MEDS ORDERED: DOCU100C37 PO (08:20)
[2017-08-07] MEDS ORDERED: IBUP-1773 PO (08:20)
== END 2017-08-04 12:14 | disposition home or self-care (01) ==
LOC: WSo 09:58 → LDRP 10:01 → WSo 12:14
PROVIDERS: ATTEND Obstetrics & Gynecology
DX: O99.89 Other specified diseases and conditions complicating pregnancy, childbirth and the puerperium (principal); N89.8 Other specified noninflammatory disorders of vagina; Z3A.38 38 weeks gestation of pregnancy
CPT/HCPCS: 80306; 81000; 99214

== ENCOUNTER → 2017-08-05 | Outpatient (CLI) | payer MEDICARE ==
[~2017-08-05] MED LIST changes: +ACHD5005 PO; +DOCU100C37 PO; +IBUP-1773 PO
== END ==
LOC: PREOP 05:37
PROVIDERS: ATTEND Obstetrics & Gynecology
DX: Z01.818 Encounter for other preprocedural examination (principal); O34.211 Maternal care for low transverse scar from previous cesarean delivery

== ENCOUNTER 2017-08-06 08:42 | Inpatient (IN) | payer MEDICARE ==
[~2017-08-06] VITALS: Ht 152.4 cm; Wt 75.4 kg
[~2017-08-06 08:42] MED LIST changes: -ACHD5005 PO; -DOCU100C37 PO; -IBUP-1773 PO
[2017-08-06] MEDS ORDERED: LACTATED RINGERS 1,000 ML IV PRN (09:38)
[2017-08-06 09:42] LABS: BASOPHILS % (AUTO) 0 % (0-10); EOSINOPHILS # (AUTO) 0.1 10^3/uL (0.0-0.3); EOSINOPHILS % (AUTO) 1 % (0-10); HEMATOCRIT 33 % (35-52); HEMOGLOBIN 10.8 G/DL (11.5-16.0); LYMPHOCYTES # (AUTO) 1.7 X 10^3 (1.0-4.0); LYMPHOCYTES % (AUTO) 17 % (12-44); MEAN CORPUSCULAR HEMOGLOBIN 26 PG (25-34); MEAN CORPUSCULAR HGB CONC 33 G/DL (32-36); MEAN CORPUSCULAR VOLUME 79 FL (80-99); MEAN PLATELET VOLUME 12.2 FL (7.4-10.4); MONOCYTES # (AUTO) 0.8 X 10^3 (0.0-1.0); MONOCYTES % (AUTO) 8 % (0-12); NEUTROPHILS # (AUTO) 7.8 X 10^3 (1.8-7.8); NEUTROPHILS % (AUTO) 75 % (42-75); PLATELET COUNT 265 10^3/uL (130-400); RED BLOOD COUNT 4.22 10^6/uL (4.35-5.85); RED CELL DISTRIBUTION WIDTH 15.8 % (10.0-14.5); WHITE BLOOD COUNT 10.5 10^3/uL (4.3-11.0)
[2017-08-06 09:44] LABS: BILIRUBIN,URINE NEGATIVE (NEGATIVE); CLARITY,URINE CLEAR; COLOR,URINE YELLOW; GLUCOSE, URINE (UA) NEGATIVE (NEGATIVE); KETONES,URINE NEGATIVE (NEGATIVE); LEUKOCYTE ESTERASE ,URINE NEGATIVE (NEGATIVE); NITRITE,URINE NEGATIVE (NEGATIVE); PH,URINE 6 (5-9); PROTEIN,URINE NEGATIVE (NEGATIVE); UROBILINOGEN,URINE NORMAL (NORMAL)
[2017-08-06] MEDS ORDERED: FAMOTIDINE 20MG/2ML IV (PEPCID) IV ONE (09:45)
[2017-08-06] MEDS ORDERED: ceFAZolin 2 GM/50 ML NS 50 ML IV NR (09:45)
[2017-08-06] MEDS ORDERED: METOCLOPRAMIDE INJ 10 MG/2 ML (REGLAN) IV ONE (09:45)
[2017-08-06] MEDS ORDERED: CITRIC ACID/SOB CIT (BICITRA) 30 ML UDC PO ONE (09:45)
[2017-08-06] MEDS: LACTATED RINGERS 1,000 ML IV PRN ×2 (09:53→11:24)
[2017-08-06 09:57] LABS: RBC,URINE RARE /HPF
[2017-08-06 09:58] LABS: BACTERIA,URINE NEGATIVE /HPF
--- NOTE | 2017-08-06 10:09 | History & Physical-OB ---
OB - Chief Complaint & HPI Date/Time Date of Admission: Date of Admission: 08/06/2017 Time Seen by Provider: 10:05 Chief Complaint/History OB-Reason for Admission/Chief: Section Hx : 3 Hx Para: 2 Expected Date of Delivery: Aug 16, 2017 Gestational Age in Weeks: 38 Gestational Age in Days: 4 Indication for : desires repeat Other reason for admission: Labor with previous x 2 Admission Nurse Assessment Rev: Yes History of Labs A pos Antibody neg RI RPR NR HBsAg NR HIV NR GC neg GBS neg Allergies and Home Medications Allergies Coded Allergies: No Known Drug Allergies (Unverified , 03/12/17) Home Medications No Active Prescriptions or Reported Meds OB - History Hx of Present Care: Yes Ultrasounds: Normal mid trimester US Obstetrical Complications: None Medical Complications: Other (Hx of Hep C) Patient Past Medical History Hx of hypothyroidism - pt reports she use to take Synthroid but has not taken for several years, TSH not recently checked. Illicit drug use - currently positive for meth/amph, THC PSH: C/S x 2 Social History/Family History Recent Infectious Disease Expo: No 2nd Hand Smoke Exposure: No OB - Admission Exam Physical Exam HEENT: NCAT Heart: Rhythm Normal Lungs: Clear Abdomen: Gravid Extremities: Normal Reflexes: Normal Cervical Dilatation: 2cm Effacement: 75% Station: -1 Membranes: Intact Heart Rate: 130's Accelerations: Accelerations Present Decelerations: Variable Decelerations Short Term Variability: Present [employer] Variability: Average (6-25) Contractions on Admission: < 5 Minutes Apart Intensity: Moderate Labs Laboratory Tests Test 08/06/17 09:00 08/06/17 09:30 Range/Units Urine Color YELLOW Urine Clarity CLEAR Urine pH 6 5-9 Urine Specific [place] 1.015 L 1.016-1.022 Urine Protein NEGATIVE NEGATIVE Urine Glucose (UA) NEGATIVE NEGATIVE Urine Ketones NEGATIVE NEGATIVE Urine Nitrite NEGATIVE NEGATIVE Urine Bilirubin NEGATIVE NEGATIVE Urine Urobilinogen NORMAL NORMAL MG/DL Urine Leukocyte Esterase NEGATIVE NEGATIVE Urine RBC (Auto) NEGATIVE NEGATIVE Urine RBC RARE /HPF Urine WBC NONE /HPF Urine Squamous Epithelial Cells 5-10 /HPF Urine Crystals NONE /LPF Urine Bacteria NEGATIVE /HPF Urine Casts NONE /LPF Urine Mucus NEGATIVE /LPF Urine Culture Indicated NO White Blood Count 10.5 4.3-11.0 10^3/uL Red Blood Count 4.22 L 4.35-5.85 10^6/uL Hemoglobin 10.8 L 11.5-16.0 G/DL Hematocrit 33 L 35-52 % Mean Corpuscular Volume 79 L 80-99 FL Mean Corpuscular Hemoglobin 26 25-34 PG Mean Corpuscular Hemoglobin Concent 33 32-36 G/DL Red Cell Distribution Width 15.8 H 10.0-14.5 % Platelet Count 265 130-400 10^3/uL Mean Platelet Volume 12.2 H 7.4-10.4 FL Neutrophils (%) (Auto) 75 42-75 % Lymphocytes (%) (Auto) 17 12-44 % Monocytes (%) (Auto) 8 0-12 % Eosinophils (%) (Auto) 1 0-10 % Basophils (%) (Auto) 0 0-10 % Neutrophils # (Auto) 7.8 1.8-7.8 X 10^3 Lymphocytes # (Auto) 1.7 1.0-4.0 X 10^3 Monocytes # (Auto) 0.8 0.0-1.0 X 10^3 Eosinophils # (Auto) 0.1 0.0-0.3 10^3/uL Basophils # (Auto) 0.0 0.0-0.1 10^3/uL OB - Assessment/Plan/Diagnosis Assessment Assessment: active labor, section Plan Plan: Section Discharge Diagnosis Diagnosis: 26 yo @ 38.4 weeks Labor Previous x 2 Hx of Hep C Hypothyroidism Hx of ilicit drug use GBS neg MONSE BALES DO Aug 06, 2017 10:09 am
[2017-08-06] MEDS ORDERED: OXYTOCIN/NORMAL SALINE 500 ML IV ONE (10:26)
[2017-08-06] MEDS ORDERED: morphine PF (DURAMORPH) 10 MG/10 ML AMP ONE (10:36)
[2017-08-06] MEDS ORDERED: PHENYLEPHRINE 100 MCG/ML 10 ML (ANESTHESIA) SYR ONE (11:05)
[2017-08-06] MEDS ORDERED: LACTATED RINGERS 1,000 ML IV SCH (11:19)
[2017-08-06] MEDS ORDERED: KETOROLAC 30 MG/ML VIAL ONE (11:22)
[2017-08-06] MEDS ORDERED: NALOXONE 0.4 MG/ML 1 ML (NARCAN) VIAL IM PRN (11:30)
[2017-08-06] MEDS ORDERED: diphenhydrAMINE 50 MG/ML INJ (BENADRYL) IV PRN (11:30)
[2017-08-06] MEDS ORDERED: ONDANSETRON 4 MG/2 ML (SDV) Z0FRAN IV PRN (11:30)
[2017-08-06] MEDS ORDERED: METOCLOPRAMIDE INJ 10 MG/2 ML (REGLAN) IV PRN (11:30)
[2017-08-06] MEDS ORDERED: D5 LR IV SOLUTION 1,000 ML IV SCH (11:51)
[2017-08-06] MEDS ORDERED: KETOROLAC 30 MG/ML VIAL IVP SCH (12:00)
[2017-08-06] MEDS ORDERED: HYDROmorphone (DILAUDID) 2 MG/ML VIAL IVP PRN (12:00)
[2017-08-06] MEDS ORDERED: TETANUS,DIPTH,PERTUSS P/F (BOOSTRIX) 0.5 ML VIAL IM SCH (12:00)
[2017-08-06] MEDS ORDERED: ceFAZolin 2 GM/50 ML NS 50 ML IV ONE (12:00)
[2017-08-06] MEDS ORDERED: MEASLES,MUMPS,RUBELLA 1 EA INJ SC SCH (12:00)
[2017-08-06 12:45] VITALS: BP 102/63
[2017-08-06 13:25] VITALS: BP 112/74
[2017-08-06] MEDS ORDERED: CATHETER FLUSH 10 ML SYR IV SCH (14:00)
[2017-08-06] MEDS ORDERED: OXYTOCIN/NORMAL SALINE 500 ML IV SCH (14:15)
[2017-08-06] MEDS ORDERED: INFLUENZA TRIvalent 2017-2018 0.5 ML/45 MCG SYR IM ONE (15:15)
[2017-08-06 16:10] VITALS: BP 105/68
[2017-08-06] MEDS ORDERED: IBUPROFEN 600 MG (MOTRIN) TAB PO ONE (17:20)
--- NOTE | 2017-08-06 19:04 | OPERATIVE REPORT ---
DATE OF SERVICE: PREOPERATIVE DIAGNOSES: 1. A 26-year-old G3, P2 at 38 weeks gestation. 2. Active labor. 3. History of hepatitis C and illicit drug use. 4. Hypothyroidism. POSTOPERATIVE DIAGNOSES: 1. A 26-year-old G3, P2 at 38 weeks gestation. 2. Active labor. 3. History of hepatitis C and illicit drug use. 4. Hypothyroidism. 5. Meconium-stained fluid. PROCEDURE: Repeat low transverse section. SURGEON: Mario Bales DO ARMED GUARD: Marietta Salinas DO ANESTHESIA: Spinal with Duramorph. ESTIMATED BLOOD LOSS: 700 mL. URINE OUTPUT: 350 mL, clear at the end of the procedure. FLUIDS: 1500 mL of lactated Ringer solution. FINDINGS: Live female , weight pending with Apgars of 8 and 9. Grossly normal appearing uterus, bilateral fallopian tubes and ovaries. A nuchal cord, which was reduced x1 and meconium-stained fluid. INDICATIONS FOR PROCEDURE: This 26-year-old female is a patient who had sought care in my office. She was found to be in early active labor making early cervical change from 1 to 2 cm and franco every 2 to 3 minutes in the labor and delivery triage bay. Once this was established, I came and discussed with the patient proceeding with delivery today at 38 weeks. Risks of the procedure were discussed with the patient in detail including risks of bleeding, infection, damage to any surrounding structures including but not limited to bowel, bladder, ureter, kidneys, risk for need for hysterectomy and even were discussed with the patient. After all of her questions were answered, consent was obtained in the preoperative area and the patient was taken to the operating room. OPERATIVE REPORT IN DETAIL: Once in the operating room, spinal anesthesia was found to be adequate. She was placed in the supine position with leftward tilt, prepped and draped in normal sterile fashion. Anesthesia was tested and time-out was performed. I then proceeded with making a Pfannenstiel skin incision through the previous existing scar using a knife and carried down to the underlying fascia using Bovie cautery. The fascial incision was extended laterally using Bovie cautery. The superior aspect of the fascial incision was then grasped with Kely clamps, tented up and dissected off the underlying rectus muscles. The inferior aspect of the fascial incision was then grasped with Kely clamps, tented up and dissected off the underlying rectus muscles. Rectus muscles were dissected down the midline using blunt traction and Garcia scissors, which exposed the peritoneum which were entered bluntly and extended using blunt traction. I placed an Temo ring retractor in the peritoneal incision, which offers excellent lateral sidewall retraction. I then was able to identify the lower uterine segment, which was thinned out and made a low transverse incision to the lower uterine segment using the knife until membranes were visualized, at which point I extended the uterine incision laterally and superiorly using bandage scissors. I then performed amniotomy at that time using an Allis clamp and meconium-stained fluid was noted. The was found in the vertex presentation. With gentle fundal pressure, the 's head was elevated up out of the incision where the nares and oropharynx were bulb suctioned. Nuchal cord was reduced x1. Anterior and posterior shoulders were delivered and the infant was then delivered out the operative field where the cord was doubly clamped and cut and infant was handed off to the waiting pediatric team. Cord blood was collected, 3-vessel cord with intact placenta was delivered spontaneously thereafter. IV Pitocin was initiated to facilitate uterine contraction. Uterine fundus became firmer with bimanual massage. The uterus was then exteriorized and cleared of all endometrial clots and debris. I then proceeded with closing the uterine incision using 0 Vicryl suture in running locked fashion. A second layer of imbricating 0 Monocryl was placed. Excellent hemostasis was noted after doing so. I then placed the uterus back within the pelvis and copiously irrigated the pelvis using normal saline. Once again, there was no active bleeding noted from any of my dissection planes. I placed Interceed antiadhesive over my low transverse incision and proceeded with closing the peritoneum using 2-0 Vicryl suture in running fashion. The rectus muscle was reapproximated using 3-0 Vicryl suture in interrupted fashion. The fascia was reapproximated using 0 Vicryl suture in a running fashion. Subcutaneous tissue was reapproximated using 3-0 plain in interrupted subcutaneous stitch and skin reapproximated using 4-0 Monocryl in a running subcuticular. Dermabond was applied to incision. Sterile dressing was adhesed with white tape. Ancef 2 g were given preoperatively for infection prophylaxis. The patient tolerated the procedure well and sent to recovery area in stable condition. Job ID: [id number] DocumentID: [id number] Dictated Date: 08/06/2017 12:02:17 Student Financial Services Counselor Date: 08/06/2017 19:03:26 Dictated By: MARIO BALES DO
[2017-08-06] MEDS: DOCUSATE SODIUM 100 MG (COLACE) CAP PO SCH (20:39)
[2017-08-06 20:40] VITALS: BP 110/79
[2017-08-06] MEDS: HYDROcodone/APAP 5 MG/325 MG (LORTAB) TAB PO PRN (20:43)
[2017-08-06 23:45] VITALS: BP 100/57
[2017-08-06] MEDS: IBUPROFEN 600 MG (MOTRIN) TAB PO SCH (23:46)
[2017-08-07 04:29] VITALS: BP 97/59
[2017-08-07] MEDS: HYDROcodone/APAP 5 MG/325 MG (LORTAB) TAB PO PRN ×2 (04:29→15:31)
[2017-08-07] MEDS ORDERED: IBUPROFEN 600 MG (MOTRIN) TAB PO ONE (06:24)
[2017-08-07 06:27] LABS: BASOPHILS % (AUTO) 0 % (0-10); EOSINOPHILS # (AUTO) 0.1 10^3/uL (0.0-0.3); EOSINOPHILS % (AUTO) 1 % (0-10); HEMATOCRIT 30 % (35-52); HEMOGLOBIN 9.3 G/DL (11.5-16.0); LYMPHOCYTES # (AUTO) 1.8 X 10^3 (1.0-4.0); LYMPHOCYTES % (AUTO) 18 % (12-44); MEAN CORPUSCULAR HEMOGLOBIN 25 PG (25-34); MEAN CORPUSCULAR HGB CONC 32 G/DL (32-36); MEAN CORPUSCULAR VOLUME 80 FL (80-99); MEAN PLATELET VOLUME 12.3 FL (7.4-10.4); MONOCYTES # (AUTO) 0.7 X 10^3 (0.0-1.0); MONOCYTES % (AUTO) 7 % (0-12); NEUTROPHILS # (AUTO) 7.2 X 10^3 (1.8-7.8); NEUTROPHILS % (AUTO) 74 % (42-75); PLATELET COUNT 237 10^3/uL (130-400); RED BLOOD COUNT 3.71 10^6/uL (4.35-5.85); RED CELL DISTRIBUTION WIDTH 15.8 % (10.0-14.5); WHITE BLOOD COUNT 9.8 10^3/uL (4.3-11.0)
[2017-08-07] MEDS: IBUPROFEN 600 MG (MOTRIN) TAB PO SCH ×3 (06:42→22:08)
--- NOTE | 2017-08-07 08:19 | Progress Note-Standard ---
Standard Progress Note Progress Notes/Assess & Plan Date Seen by Provider: Aug 07, 2017 Time Seen by Provider: 08:10 Progress/Assessment & Plan Patient doing well POD 1 RLTCS. Reports good pain control. Ambulating and voiding freely, lochia is light. Vital Sign - Last 24 Hours 08/06/17 08/06/17 08/06/17 08/06/17 12:45 13:25 16:10 20:40 Temp 98.1 97.6 98.7 98.5 Pulse 77 56 77 70 Resp 18 18 18 16 B/P (MAP) 102/63 (76) 112/74 (87) 105/68 (80) 110/79 (89) Pulse Ox 99 99 99 O2 Delivery Room Air Room Air Room Air 08/06/17 08/07/17 23:45 04:29 Temp 97.6 99.1 Pulse 67 73 Resp 18 18 B/P (MAP) 100/57 (71) 97/59 (72) Pulse Ox 98 O2 Delivery Room Air Intake and Output 08/06/17 08/06/17 08/07/17 15:00 23:00 07:00 Intake Total 2300 ml 875 ml 600 ml Output Total 350 ml 275 ml 600 ml Balance 1950 ml 600 ml 0 ml Incision: c/d/i Laboratory Tests Test 08/06/17 09:00 08/06/17 09:30 08/07/17 05:47 Range/Units Urine Color YELLOW Urine Clarity CLEAR Urine pH 6 5-9 Urine Specific [place] 1.015 L 1.016-1.022 Urine Protein NEGATIVE NEGATIVE Urine Glucose (UA) NEGATIVE NEGATIVE Urine Ketones NEGATIVE NEGATIVE Urine Nitrite NEGATIVE NEGATIVE Urine Bilirubin NEGATIVE NEGATIVE Urine Urobilinogen NORMAL NORMAL MG/DL Urine Leukocyte Esterase NEGATIVE NEGATIVE Urine RBC (Auto) NEGATIVE NEGATIVE Urine RBC RARE /HPF Urine WBC NONE /HPF Urine Squamous Epithelial Cells 5-10 /HPF Urine Crystals NONE /LPF Urine Bacteria NEGATIVE /HPF Urine Casts NONE /LPF Urine Mucus NEGATIVE /LPF Urine Culture Indicated NO White Blood Count 10.5 9.8 4.3-11.0 10^3/uL Red Blood Count 4.22 L 3.71 L 4.35-5.85 10^6/uL Hemoglobin 10.8 L 9.3 L 11.5-16.0 G/DL Hematocrit 33 L 30 L 35-52 % Mean Corpuscular Volume 79 L 80 80-99 FL Mean Corpuscular Hemoglobin 26 25 25-34 PG Mean Corpuscular Hemoglobin Concent 33 32 32-36 G/DL Red Cell Distribution Width 15.8 H 15.8 H 10.0-14.5 % Platelet Count 265 237 130-400 10^3/uL Mean Platelet Volume 12.2 H 12.3 H 7.4-10.4 FL Neutrophils (%) (Auto) 75 74 42-75 % Lymphocytes (%) (Auto) 17 18 12-44 % Monocytes (%) (Auto) 8 7 0-12 % Eosinophils (%) (Auto) 1 1 0-10 % Basophils (%) (Auto) 0 0 0-10 % Neutrophils # (Auto) 7.8 7.2 1.8-7.8 X 10^3 Lymphocytes # (Auto) 1.7 1.8 1.0-4.0 X 10^3 Monocytes # (Auto) 0.8 0.7 0.0-1.0 X 10^3 Eosinophils # (Auto) 0.1 0.1 0.0-0.3 10^3/uL Basophils # (Auto) 0.0 0.0 0.0-0.1 10^3/uL Diagnosis: POD 1 RLTCS Acute blood loss anemia Hypothyroidism Hx of illicit drug use P: Replace iron Continue routine PO care MONSE BALES DO Aug 07, 2017 08:18
[2017-08-07] MEDS ORDERED: DOCU100C37 PO (08:20)
[2017-08-07] MEDS ORDERED: IBUP-1773 PO (08:20)
[2017-08-07] MEDS ORDERED: ACHD5005 PO (08:20)
--- NOTE | 2017-08-07 08:21 | Discharge Inst-Women's Service ---
Discharge Inst-Women's Serv Depart Medication/Instructions New, Converted or Re-Newed RX: RX on Chart Consults/Follow Up Additional Follow Up: Yes Orders/Referrals Dr. Monk in 7-10 days and in 6 weeks Activity Activity: Activity as Tolerated Driving Instructions: No Driving for 1 Week NO SMOKING: NO SMOKING Nothing Inside Vagina: No Douching, No [place], No Tampons Diet Discharge Diet: No Restrictions Symptoms to Report to : Bleeding Excessive, Pain Increased, Fever Over 101 Degrees F, Vaginal Bleeding Increase, Questions/Concerns For Any Problems or Questions: Contact Your Physician Skin/Wound Care Infection Signs and Symptoms: Increased Redness, Foul Odor of Wound, Increased Drainage, Skin Itchy or Has a Rash, Increased Swelling, Temperature Above 101 F Operative Area Clean and Dry: Keep Incision Clean/Dry Stitches/Ravi/Dermabond: Dermabond, Care of Stitches Bathing Instructions: MONSE Hoffman DO Aug 07, 2017 08:21
[2017-08-07 08:54] LABS: AMPHETAMINE SCREEN, URINE NEGATIVE (NEGATIVE); BARBITURATE SCREEN URINE NEGATIVE (NEGATIVE); BENZODIAZEPINES SCREEN URINE NEGATIVE (NEGATIVE); CANNABINOID SCREEN, URINE NEGATIVE (NEGATIVE); COCAINE SCREEN URINE NEGATIVE (NEGATIVE); METHADONE STAT NEGATIVE (NEGATIVE); METHAMPHETAMINE SCREEN URINE S NEGATIVE (NEGATIVE); OPIATE SCREEN URINE NEGATIVE (NEGATIVE); OXYCODONE STAT NEGATIVE (NEGATIVE); PROPOXYPHENE STAT NEGATIVE (NEGATIVE); TRICYCLIC ANTIDEPRESSANTS SCRE NEGATIVE (NEGATIVE)
[2017-08-07] MEDS: DOCUSATE SODIUM 100 MG (COLACE) CAP PO SCH ×2 (10:04→22:08)
[2017-08-07 11:00] VITALS: BP 109/71
--- NOTE | 2017-08-07 13:01 | Anesthesia-Regional Post-Op ---
Regional Patient Condition Mental Status: Alert, Oriented x3 Circulation: Same as Pre-Op Headache: Absent Sensation: Full Recovery Motor Block: Absent Post Op Complications Complications None Follow Up Care/Instructions Patient Instructions None needed. Anesthesia/Patient Condition Patient is doing well, no complaints, stable vital signs, no apparent adverse anesthesia problems. CONOR MARX DO Aug 07, 2017 13:01
[2017-08-07 16:00] VITALS: BP 107/69
[2017-08-07] MEDS ORDERED: FERROUS SULF 325 MG (IRON) TAB PO SCH (17:00)
[2017-08-07 22:08] VITALS: BP 102/64
[2017-08-08 04:06] VITALS: BP 109/69
[2017-08-08] MEDS: IBUPROFEN 600 MG (MOTRIN) TAB PO SCH ×2 (04:06→10:11)
[2017-08-08] MEDS: HYDROcodone/APAP 5 MG/325 MG (LORTAB) TAB PO PRN (08:53)
[2017-08-08 09:20] VITALS: BP 121/79
--- NOTE | 2017-08-08 10:02 | Progress Note-Standard ---
Standard Progress Note Progress Notes/Assess & Plan Date Seen by Provider: Aug 08, 2017 Time Seen by Provider: 07:50 Progress/Assessment & Plan Patient doing well POD 2 RLTCS. Reports good pain control. Ambulating and voiding freely, lochia is light. Vital Sign - Last 24 Hours 08/07/17 08/07/17 08/07/17 08/08/17 11:00 16:00 22:08 04:06 Temp 97.3 98.7 98.7 98.5 Pulse 74 72 78 69 Resp 18 B/P (MAP) 109/71 (84) 107/69 (82) 102/64 (77) 109/69 (82) Pulse Ox 100 100 99 99 O2 Delivery Room Air Room Air Room Air Room Air 08/08/17 09:20 Temp 98.3 Pulse 99 Resp 20 B/P (MAP) 121/79 (93) Pulse Ox 97 O2 Delivery Room Air Intake and Output 08/07/17 08/07/17 08/08/17 15:00 23:00 07:00 Intake Total 400 ml Balance 400 ml Incision: c/d/i Diagnosis: POD 2 RLTCS Acute blood loss anemia Hypothyroidism Hx of illicit drug use P: Replace iron Continue routine PO care DC today MONSE BALES DO Aug 08, 2017 10:01 am
== END 2017-08-08 10:30 | disposition home or self-care (01) | DRG 765 ==
LOC: WSo 08:42 → LDRP 08:43 → WS 12:20
PROVIDERS: ADMIT Obstetrics & Gynecology; ATTEND Obstetrics & Gynecology
PROC: 10D00Z1 Extraction of Products of Conception, Low, Open Approach (ICD-10-PCS; principal; 2017-08-06 10:52)
DX: O34.211 Maternal care for low transverse scar from previous cesarean delivery (principal); O90.81 Anemia of the puerperium; D62 Acute posthemorrhagic anemia; O98.42 Viral hepatitis complicating childbirth; B19.20 Unspecified viral hepatitis C without hepatic coma; O99.284 Endocrine, nutritional and metabolic diseases complicating childbirth; E03.9 Hypothyroidism, unspecified; O69.81X0 Labor and delivery complicated by cord around neck, without compression, not applicable or unspecified; Z37.0 Single live birth; Z3A.38 38 weeks gestation of pregnancy
CPT/HCPCS: 36415; 80306; 81000; 85025; 86850; 86900; 86901; 94664; 99212; 99214

== ENCOUNTER 2018-07-30 12:56 | Outpatient (CLI) | payer MEDICARE, MEDICAID ==
[~2018-07-30] VITALS: Ht 152.4 cm; Wt 75.3 kg
[~2018-07-30 12:56] MED LIST changes: +ACHD5005 PO; +DOCU100C37 PO; +IBUP-1773 PO
[2018-08-01] MEDS ORDERED: DOCU100C37 PO (07:25)
[2018-08-01] MEDS ORDERED: ACHD5005 PO (07:25)
[2018-08-01] MEDS ORDERED: IBUP-844 PO (07:25)
== END 2018-07-30 13:34 | disposition home or self-care (01) ==
LOC: PREOP 12:56
PROVIDERS: ATTEND Obstetrics & Gynecology
DX: Z01.818 Encounter for other preprocedural examination (principal)

== ENCOUNTER 2018-08-01 06:08 | Inpatient (IN) | payer MEDICARE, MEDICAID | END 2018-08-03 17:12 | disposition home or self-care (01) | LOC: LDRP 06:08 ==

== ENCOUNTER → 2021-10-25 | Outpatient (CLI) | payer MEDICARE, MEDICAID ==
[~2021-10-25] MED LIST changes: +IBUP-844 PO
[2021-10-25 17:29] LABS: BASOPHILS % (AUTO) 0 % (0-10); EOSINOPHILS # (AUTO) 0.2 10^3/uL (0.0-0.3); EOSINOPHILS % (AUTO) 3 % (0-10); HEMATOCRIT 37 % (35-52); HEMOGLOBIN 12.1 g/dL (11.5-16.0); LYMPHOCYTES # (AUTO) 1.4 10^3/uL (1.0-4.0); LYMPHOCYTES % (AUTO) 19 % (12-44); MEAN CORPUSCULAR HEMOGLOBIN 29 pg (25-34); MEAN CORPUSCULAR HGB CONC 33 g/dL (32-36); MEAN CORPUSCULAR VOLUME 88 fL (80-99); MONOCYTES # (AUTO) 0.5 10^3/uL (0.0-1.0); MONOCYTES % (AUTO) 7 % (0-12); NEUTROPHILS # (AUTO) 5.1 10^3/uL (1.8-7.8); NEUTROPHILS % (AUTO) 71 % (42-75); PLATELET COUNT 250 10^3/uL (130-400); WHITE BLOOD COUNT 7.2 10^3/uL (4.3-11.0)
== END ==
LOC: LABNPT 13:30
PROVIDERS: ATTEND Obstetrics & Gynecology
DX: Z36.89 Encounter for other specified antenatal screening (principal)
CPT/HCPCS: 85025; 86703; 86762; 86780; 86850; 86900; 86901; 87340; 87522

== ENCOUNTER 2021-12-03 02:23 | Emergency (ER) | payer MEDICARE, MEDICAID ==
[~2021-12-03] VITALS: Ht 152.4 cm; Wt 68.6 kg
[2021-12-03] MEDS ORDERED: CLON0.5T4 (02:42)
[2021-12-03] MEDS ORDERED: LEVO-130 (02:42)
[2021-12-03] MEDS ORDERED: BREX1TAB (02:42)
[2021-12-03 02:44] LABS: BILIRUBIN,URINE NEGATIVE (NEGATIVE); CLARITY,URINE CLOUDY; COLOR,URINE YELLOW; GLUCOSE, URINE (UA) NEGATIVE (NEGATIVE); KETONES,URINE NEGATIVE (NEGATIVE); LEUKOCYTE ESTERASE ,URINE 3+ (NEGATIVE); NITRITE,URINE POSITIVE (NEGATIVE); PROTEIN,URINE 2+ (NEGATIVE)
[2021-12-03 03:00] LABS: BACTERIA,URINE FEW /HPF; SQUAMOUS EPITHELIAL CELL,UR 0-2 /HPF; WBC,URINE TNTC /HPF
[2021-12-03] MEDS ORDERED: NS IV 1000 ML 1,000 ML IV SCH (03:00)
--- NOTE | 2021-12-03 03:05 | ED GU-Female ---
General Chief Complaint: - Reproductive Stated Complaint: BACK PAIN, VOMITING, Nursing Triage Note: c/o lower back pain, burning with urination x2 days. reports approx. 16weeks . Source: patient Exam Limitations: no limitations History of Present Illness Date Seen by Provider: December 03, 2021 Time Seen by Provider: 02:45 Initial Comments Patient to the ER by private conveyance from home with chief complaint of 2 days progressively worsening dysuria, right greater than left flank pain radiating down into her groins. No history of kidney stones. She has had subjective fevers without a thermometer. She has had chills. She does not take Tylenol because she has hepatitis C although she said her last quantitative viral load was low. She has not had treatment for hepatitis C yet. She has been taking cranberry pills and drinking cranberry juice. She has not had a urinalysis yet. She said her urine was rather dark and cloudy looking. G5, P4 at approximately [address] Bales for obstetrics. Allergies and Home Medications Allergies Coded Allergies: No Known Drug Allergies (Unverified , 03/12/17) Patient Home Medication List Home Medication List Reviewed: Yes Brexpiprazole (Rexulti) 1 Mg Tablet, (Reported) Entered as Reported by: VANESSA JERONIMO on 12/03/21241 Last Action: New Order Cefdinir (Cefdinir) 300 Mg Capsule, 300 MG PO BID Prescribed by: PAULA HONEYCUTT on 12/03/21350 Clonazepam (Clonazepam) 0.5 Mg Tablet, (Reported) Entered as Reported by: VANESSA JERONIMO on 12/03/21241 Last Action: New Order Docusate Sodium (Docusate Sodium) 100 Mg Capsule, 100 MG PO BID PRN for CONSTIP ATION-1ST LINE Prescribed by: MONSE BALES on 08/01/18 07 Hydrocodone Bit/Acetaminophen (Lortab 5 Mg Tablet) 1 Tab Tab, 1-2 TAB PO Q4H PRN for PAIN-MODERATE Prescribed by: MONSE BALES on 08/01/18724 Ibuprofen (Ibu) 600 Mg Tablet, 600 MG PO Q6H Prescribed by: MONSE BALES on 08/01/18724 Levothyroxine Sodium (Euthyrox) 100 Mcg Tablet, (Reported) Entered as Reported by: VANESSA JERONIMO on 5/29/22 0242 Last Action: New Order Review of Systems Review of Systems Constitutional: chills, fever, malaise EENTM: No ear discharge, No ear pain Respiratory: No cough, No short of breath Cardiovascular: No edema, No palpitations Gastrointestinal: No abdominal pain, No nausea, No vomiting Genitourinary: denies discharge, denies dysuria : Yes Expected Date of Delivery: May 08, 2022 Musculoskeletal: No back pain, No joint pain All Other Systemes Reviewed Negative Unless Noted: Yes Past Eaxsfrt-Pzqqww-Iexrln Hx Patient Social History Tobacco Use?: Yes Substance use?: No Alcohol Use?: No Pt feels they are or have been: No Seasonal Allergies Seasonal Allergies: Yes Past Medical History Surgery/Hospitalization HX: c-sect x4, hypothryoidism, anxiety, depression Surgeries: Yes ( X 3) Section Respiratory: No Cardiac: No Neurological: No Expected Date of Delivery: May 08, 2022 Last Menstrual Period: Sep 06, 2021 Reproductive Disorders: Yes (IRREGULAR PERIODS) Female Reproductive Disorders: Menstrual Problems Genitourinary: No Bladder Infection Gastrointestinal: Yes Hepatitis Musculoskeletal: No Endocrine: Yes HEENT: No Cancer: No Psychosocial: No Integumentary: No Blood Disorders: No Adverse Reaction/Blood Tranf: No Family Medical History Arthritis 19 MOTHER FHx: hypothyroidism 19 MOTHER Physical Exam Vital Signs Vital Signs - First Documented 12/03/21 02:31 Temp 36.4 Pulse 90 Resp 20 B/P (MAP) 114/70 (85) Pulse Ox 99 O2 Delivery Room Air Capillary Refill : Less Than 3 Seconds Height, Weight, BMI Height: 5'0.00" Weight: 165lbs. 8.0oz. [id number]; 29.00 BMI Method:Stated General Appearance: WD/WN, no apparent distress HEENT: PERRL/EOMI, pharynx normal Neck: full range of motion, supple, normal inspection Cardiovascular: normal peripheral pulses, regular rate, rhythm Respiratory: no respiratory distress, no accessory muscle use Gastrointestinal: normal bowel sounds, non tender, soft Back: normal inspection, no vertebral tenderness, CVA tenderness (R); No CVA tenderness (L) Extremities: non-tender, normal inspection, normal capillary refill Neurologic/Psychiatric: alert, oriented x 3, other (Anxious, pressured speech) Skin: normal color, warm/dry Progress/Results/Core Measures Suspected Sepsis SIRS Temperature: Pulse: 90 Respiratory Rate: 20 Laboratory Tests 12/03/21 03:08: White Blood Count 15.8H Blood Pressure 114 /70 Mean: 85 Laboratory Tests 12/03/21 03:08: Creatinine 0.54L, Platelet Count 218, Total Bilirubin 0.5 Results/Orders Lab Results Laboratory Tests Test 12/03/21 02:35 12/03/21 03:08 Range/Units Urine Color YELLOW Urine Clarity CLOUDY Urine pH 6.0 5-9 Urine Specific [place] 1.020 1.016-1.022 Urine Protein 2+ H NEGATIVE Urine Glucose (UA) NEGATIVE NEGATIVE Urine Ketones NEGATIVE NEGATIVE Urine Nitrite POSITIVE H NEGATIVE Urine Bilirubin NEGATIVE NEGATIVE Urine Urobilinogen 0.2 < = 1.0 MG/DL Urine Leukocyte Esterase 3+ H NEGATIVE Urine RBC (Auto) 3+ H NEGATIVE Urine RBC 5-10 H /HPF Urine WBC TNTC H /HPF Urine Squamous Epithelial Cells 0-2 /HPF Urine Crystals NONE /LPF Urine Bacteria FEW H /HPF Urine Casts NONE /LPF Urine Mucus LARGE H /LPF Urine Culture Indicated YES White Blood Count 15.8 H 4.3-11.0 10^3/uL Red Blood Count 3.84 3.80-5.11 10^6/uL Hemoglobin 11.6 11.5-16.0 g/dL Hematocrit 34 L 35-52 % Mean Corpuscular Volume 87 80-99 fL Mean Corpuscular Hemoglobin 30 25-34 pg Mean Corpuscular Hemoglobin Concent 35 32-36 g/dL Red Cell Distribution Width 13.3 10.0-14.5 % Platelet Count 218 130-400 10^3/uL Mean Platelet Volume 10.9 9.0-12.2 fL Immature Granulocyte % (Auto) 1 % Neutrophils (%) (Auto) 86 H 42-75 % Lymphocytes (%) (Auto) 6 L 12-44 % Monocytes (%) (Auto) 7 0-12 % Eosinophils (%) (Auto) 1 0-10 % Basophils (%) (Auto) 0 0-10 % Neutrophils # (Auto) 13.5 H 1.8-7.8 10^3/uL Lymphocytes # (Auto) 1.0 1.0-4.0 10^3/uL Monocytes # (Auto) 1.0 0.0-1.0 10^3/uL Eosinophils # (Auto) 0.1 0.0-0.3 10^3/uL Basophils # (Auto) 0.0 0.0-0.1 10^3/uL Immature Granulocyte # (Auto) 0.1 0.0-0.1 10^3/uL Sodium Level 137 135-145 MMOL/L Potassium Level 3.6 3.6-5.0 MMOL/L Chloride Level 105 98-107 MMOL/L Carbon Dioxide Level 18 L 21-32 MMOL/L Anion Gap 14 5-14 MMOL/L Blood Urea Nitrogen 9 7-18 MG/DL Creatinine 0.54 L 0.60-1.30 MG/DL Estimat Glomerular Filtration Rate 125 BUN/Creatinine Ratio 17 Glucose Level 102 70-105 MG/DL Calcium Level 8.7 8.5-10.1 MG/DL Corrected Calcium 9.3 8.5-10.1 MG/DL Total Bilirubin 0.5 0.1-1.0 MG/DL Aspartate Amino Transf (AST/SGOT) 14 5-34 U/L Alanine Aminotransferase (ALT/SGPT) 14 0-55 U/L Alkaline Phosphatase 63 40-136 U/L C-Reactive Protein High Sensitivity 7.33 H 0.00-0.50 MG/DL Total Protein 6.4 6.4-8.2 GM/DL Albumin 3.2 3.2-4.5 GM/DL My Orders Orders - PAULA HONEYCUTT Ua Culture If Indicated (12/03/21 02:30) Urine Bedside (12/03/21 02:30) Ed Iv/Invasive Line Start (12/03/21 02:58) Ns Iv 1000 Ml (Sodium Chloride 0.9%) (12/03/21 03:00) Cbc With Automated Diff (12/03/21 02:58) Comprehensive Metabolic Panel (12/03/21 02:58) Hs C Reactive Protein (12/03/21 02:58) Urine Culture (12/03/21 02:35) Ceftriaxone 1 Gm Pre-Mix (Rocephin 1 Gm (12/03/21 03:15) Manual Differential (12/03/21 03:08) Medications Given in ED Current Medications Medications Dose Ordered Sig/John Route Start Time Stop Time Status Last Admin Dose Admin Ceftriaxone Sodium/Dextrose 50 ml @ 100 mls/hr ONCE ONCE IV 12/03/21 03:15 12/03/21 03:44 DC 12/03/21 03:21 100 MLS/HR Vital Signs/I&O 12/03/21 02:31 Temp 36.4 Pulse 90 Resp 20 B/P (MAP) 114/70 (85) Pulse Ox 99 O2 Delivery Room Air Capillary Refill : Less Than 3 Seconds Blood Pressure Mean: 85 Progress Note : Time: 03:04 Progress Note Suspect UTI versus pyelonephritis. Plan to put a line and give her a liter of fluids and likely Rocephin. Departure Impression Primary Impression: UTI (urinary tract infection) Qualified Codes: N10 - Acute pyelonephritis Disposition: HOME, SELF-CARE Condition: Stable Departure-Patient Inst. Decision time for Depature: 03:47 Referrals: MONSE BALES DO (PCP/Family) Primary Care Physician Patient Instructions: Urinary Tract Infection, Adult (DC) Add. Discharge Instructions: Drink plenty of fluids. Cefdinir 1 capsule twice a day for the next week. Follow-up with Dr. Bales at your scheduled appointment in 2 weeks. Return to the ER for fever above 102.5, intractable vomiting or pain. Ondansetron 1 tablet every 6 hours under the tongue as needed for nausea or vomiting. All discharge instructions reviewed with patient and/or family. Voiced understanding. Scripts Ondansetron (Ondansetron Odt) 4 Mg Tab.rapdis 4 MG PO Q6H PRN for NAUSEA/VOMITING, #8 TAB 0 Refills Prov: PAULA HONEYCUTT 12/03/21 Cefdinir (Cefdinir) 300 Mg Capsule 300 MG PO BID for 7 Days, #14 CAP 0 Refills Prov: PAULA HONEYCUTT 12/03/21 Copy Copies To 1: MONSE BAELS TITUS J December 03, 2021 03:05
[2021-12-03] MEDS ORDERED: cefTRIAXone 1 GM PRE-MIX 50 ML IV ONE (03:15)
[2021-12-03 03:22] LABS: BASOPHILS % (AUTO) 0 % (0-10); EOSINOPHILS # (AUTO) 0.1 10^3/uL (0.0-0.3); EOSINOPHILS % (AUTO) 1 % (0-10); HEMATOCRIT 34 % (35-52); HEMOGLOBIN 11.6 g/dL (11.5-16.0); LYMPHOCYTES % (AUTO) 6 % (12-44); MEAN CORPUSCULAR HEMOGLOBIN 30 pg (25-34); MEAN CORPUSCULAR HGB CONC 35 g/dL (32-36); MEAN CORPUSCULAR VOLUME 87 fL (80-99); MEAN PLATELET VOLUME 10.9 fL (9.0-12.2); MONOCYTES % (AUTO) 7 % (0-12); NEUTROPHILS # (AUTO) 13.5 10^3/uL (1.8-7.8); NEUTROPHILS % (AUTO) 86 % (42-75); PLATELET COUNT 218 10^3/uL (130-400); WHITE BLOOD COUNT 15.8 10^3/uL (4.3-11.0)
[2021-12-03 03:37] LABS: ALBUMIN 3.2 GM/DL (3.2-4.5); POTASSIUM 3.6 MMOL/L (3.6-5.0)
[2021-12-03 03:38] LABS: CALCIUM 8.7 MG/DL (8.5-10.1)
[2021-12-03 03:39] LABS: TOTAL PROTEIN 6.4 GM/DL (6.4-8.2)
[2021-12-03 03:41] LABS: BILIRUBIN,TOTAL 0.5 MG/DL (0.1-1.0)
[2021-12-03 03:43] LABS: CREATININE SERUM 0.54 MG/DL (0.60-1.30)
[2021-12-03] MEDS ORDERED: CEFD300C3 PO (03:51)
[2021-12-03 03:53] VITALS: BP 97/61
[2021-12-03] MEDS ORDERED: ONDA4TAB11 PO (03:54)
[2021-12-03 04:13] LABS: BAND NEUTROPHILS 3 %; LYMPHOCYTES % (MANUAL) 9 %; MONOCYTES % (MANUAL) 3 %; NEUTROPHILS % (MANUAL) 85 %; RBC MORPH NORMAL
== END 2021-12-03 03:56 | disposition home or self-care (01) ==
LOC: EDUNIT# 02:23 → ER 02:25
DX: O23.02 Infections of kidney in pregnancy, second trimester (principal); Z3A.16 16 weeks gestation of pregnancy
CPT/HCPCS: 36415; 80053; 81000; 84703; 85007; 85027; 86141; 87077; 87088; 87186

== ENCOUNTER → 2021-12-19 | Outpatient (CLI) | payer MEDICARE, MEDICAID ==
[~2021-12-19] MED LIST changes: +BREX1TAB; +CEFD300C3 PO; +CLON0.5T4; +LEVO-130; +ONDA4TAB11 PO
--- NOTE | 2021-12-19 17:56 | Diagnostic Imaging Report ---
INDICATION: TECHNIQUE: Multiple real-time grayscale images were obtained over the gravid uterus. COMPARISON: None FINDINGS: Archuleta viable intrauterine gestation measures 19 weeks 6 days sonographic estimated date of delivery 05/09/2022. The nondilated cervix measures a length of 4.9 cm. The placenta is anterior with its caudal tip separable from the closed os by 5.6 cm, no abruption or previa. The anatomical survey shows mild ectasia of the right renal pelvis at 5.2 mm, the left is 3.7 and is within the upper limits of normal. At less than 28 weeks of gestation pyelectasis is considered dimensions greater than 4 mm. Followup exam recommended. No nati dilatation of the renal collecting systems. The amniotic fluid volume was normal.` Biometrical measurements are as follows: Biparietal 4.61 cm, age 20 weeks 0 days. Head circumference 17.44 cm, age 20 weeks 0 days. Abdominal circumference 14.69 cm, age 20 weeks 0 days. Femur length 2.92 cm, age 19 weeks 0 days. Sonographic estimate age: 19 weeks 6 days. Sonographic estimated date of delivery: 05/09/2022. Estimated Weight: 301 gm (+/- 44 gm). LMP percentile: 79%. heart rate: 158 beats per minute. number: 1 of 1. IMPRESSION: 1. Mild pyelectasis of the renal pelvis without nati hydronephrosis, followup suggested. 2. Anatomical survey otherwise normal with Archuleta viable IUP measuring 19 weeks 6 days. Dictated by: Dictated on workstation # [id number]
== END ==
LOC: RAD 12:30
PROVIDERS: ATTEND Obstetrics & Gynecology
DX: Z34.92 Encounter for supervision of normal pregnancy, unspecified, second trimester (principal); Z3A.19 19 weeks gestation of pregnancy
CPT/HCPCS: 76805

== ENCOUNTER 2022-01-24 16:18 | Emergency (ER) | payer MEDICARE, MEDICAID ==
[~2022-01-24] VITALS: Ht 155 cm; Wt 69.5 kg
--- NOTE | 2022-01-24 16:27 | ED Lower Extremity ---
General Chief Complaint: Lower Extremity Stated Complaint: FOOT INJURY Source: patient Exam Limitations: no limitations History of Present Illness Date Seen by Provider: Jan 24, 2022 Time Seen by Provider: 16:25 Initial Comments Patient is a 31-year-old female who presents ED with left lateral foot pain. This occurred around 1230. She states that she was walking down her stairs off her deck when she stepped on a On a PVC pipe rotating her left foot. She has pain to the left dorsum lateral foot with bruising and swelling. Did continue walking but did have pain and discomfort. Worsening pain with past hour. Denies taking thing for pain. No history of previous fracture. Denies any ankle pain, calf pain, fever, nausea vomit, diarrhea. Allergies and Home Medications Allergies Coded Allergies: No Known Drug Allergies (Unverified , 03/12/17) Patient Home Medication List Home Medication List Reviewed: Yes Brexpiprazole (Rexulti) 1 Mg Tablet, (Reported) Entered as Reported by: VANESSA JERONIMO on 12/03/21241 Cefdinir (Cefdinir) 300 Mg Capsule, 300 MG PO BID Prescribed by: PAULA HONEYCUTT on 12/03/21 035 Clonazepam (Clonazepam) 0.5 Mg Tablet, (Reported) Entered as Reported by: VANESSA JERONIMO on 12/03/21241 Docusate Sodium (Docusate Sodium) 100 Mg Capsule, 100 MG PO BID PRN for CONSTIPATION-1ST LINE Prescribed by: MONSE BALES on 08/01/18 07 Hydrocodone Bit/Acetaminophen (Lortab 5 Mg Tablet) 1 Tab Tab, 1-2 TAB PO Q4H PRN for PAIN-MODERATE Prescribed by: MONSE BALES on 08/01/18 07 Ibuprofen (Ibu) 600 Mg Tablet, 600 MG PO Q6H Prescribed by: MONSE BALES on 08/01/18724 Levothyroxine Sodium (Euthyrox) 100 Mcg Tablet, (Reported) Entered as Reported by: VANESSA JERONIMO on 12/03/21241 Ondansetron (Ondansetron Odt) 4 Mg Tab.rapdis, 4 MG PO Q6H PRN for NAUSEA/VOMITING Prescribed by: PAULA HONEYCUTT on 12/03/21 035 Review of Systems Constitutional: No chills, No diaphoresis, No malaise, No weakness EENTM: No blurred vision, No double vision Respiratory: No cough, No dyspnea on exertion Cardiovascular: No chest pain Gastrointestinal: No abdominal pain, No diarrhea, No nausea, No vomiting Genitourinary: No decreased output, No discharge Musculoskeletal: joint pain, joint swelling, muscle pain, muscle stiffness Skin: change in color; No change in hair/nails All Other Systems Reviewed Negative Unless Noted: Yes Past Zovgxav-Ztybbg-Jbcmiy Hx Seasonal Allergies Seasonal Allergies: Yes Past Medical History Surgery/Hospitalization HX: c-sect x4, hypothryoidism, anxiety, depression Surgeries: Yes ( X 3) Section Respiratory: No Cardiac: No Neurological: No Reproductive Disorders: Yes (IRREGULAR PERIODS) Female Reproductive Disorders: Menstrual Problems Genitourinary: No Bladder Infection Gastrointestinal: Yes Hepatitis Musculoskeletal: No Endocrine: Yes HEENT: No Cancer: No Psychosocial: No Integumentary: No Blood Disorders: No Adverse Reaction/Blood Tranf: No Family Medical History Arthritis 19 MOTHER FHx: hypothyroidism 19 MOTHER Physical Exam Vital Signs Vital Signs - First Documented 01/24/22 16:24 Temp 37.0 B/P (MAP) 120/76 (91) Pulse Ox 97 O2 Delivery Room Air Capillary Refill : Height, Weight, BMI Height: 5'0.00" Weight: 165lbs. 8.0oz. 75.028712ij; 29.00 BMI Method:Stated General Appearance: WD/WN, no apparent distress HEENT: PERRL/EOMI, normal ENT inspection, TMs normal, pharynx normal Neck: non-tender, full range of motion, supple Cardiovascular: regular rate, rhythm, no edema, no gallop, no JVD Respiratory: chest non-tender, lungs clear, normal breath sounds, no respiratory distress, no accessory muscle use Gastrointestinal: normal bowel sounds, non tender, soft Back: normal inspection, no CVA tenderness Ankles: left ankle non-tender, left ankle normal inspection, left ankle normal range of motion Feet: left foot pain, left foot soft tissue tenderness (Left dorsum and lateral foot fourth and fifth metatarsal), left foot swelling Neurologic/Psychiatric: rigging up worker II-XII nml as tested, no motor/sensory deficits, alert, oriented x 3 Skin: warm/dry Progress/Results/Core Measures Results/Orders My Orders Orders - DEVANG QUINTEROS Foot, Left, 3 Views (7/20/22 16:24) Hydrocodone/Apap 5/325 Tablet (Lortab 5 (01/24/22 16:30) Acetaminophen Tablet (Tylenol Tablet) (01/24/22 16:30) Medications Given in ED Current Medications Medications Dose Ordered Sig/John Route Start Time Stop Time Status Last Admin Dose Admin Acetaminophen 1,000 mg ONCE ONCE PO 01/24/22 16:30 01/24/22 16:31 DC 01/24/22 16:38 1,000 MG Vital Signs/I&O 01/24/22 01/24/22 16:24 16:38 Temp 37.0 37.0 B/P (MAP) 120/76 (91) Pulse Ox 97 O2 Delivery Room Air Departure Communication (PCP) Patient presents ED with left foot injury. Patient is currently and due May 15. She has no abdominal pain or vaginal bleeding. Tenderness to left lateral foot. X-ray shows acute nondisplaced fracture at the base of the fifth metatarsal. Due to her narcotics was withheld. Patient was placed in a walking boot. Provided crutches. Limit weightbearing. Orthopedic outpatient follow-up in 7 to 10 days. Ice and elevate. She scheduled follow-up with her INTERLINE CLERK tomorrow can discuss further pain management that is agreeable to his preference. Return precaution were discussed with patient. Impression Primary Impression: Fracture of foot Disposition: 01 HOME, SELF-CARE Condition: Stable Departure-Patient Inst. Decision time for Depature: 16:55 Referrals: MONSE BALES DO (PCP/Family) Primary Care Physician FRANKLIN KUMAR MD Patient Instructions: Foot Fracture (DC) Add. Discharge Instructions: Recommend following up with orthopedic in 7 to 10 days for reevaluation. Limit weightbearing. Tylenol for pain relief. Ice and elevate All discharge instructions reviewed with patient and/or family. Voiced understanding. DEVANG QUINTEROS Jan 24, 2022 16:27
[2022-01-24] MEDS ORDERED: HYDROcodone/APAP 5 MG/325 MG (LORTAB) TAB PO ONE (16:30)
[2022-01-24] MEDS ORDERED: ACETAMINOPHEN 500 MG TAB (TYLENOL) PO ONE (16:30)
--- NOTE | 2022-01-24 16:48 | Diagnostic Imaging Report ---
INDICATION: Left foot pain. TECHNIQUE: AP, oblique, and lateral views of the left foot were obtained at 4:44 PM. FINDINGS: There is an acute nondisplaced fracture at the base of the 5th metatarsal with a horizontal configuration. The remaining bony structures are intact. The joint spaces are unremarkable. IMPRESSION: Acute nondisplaced fracture at the base of the 5th metatarsal. Dictated by: Dictated on workstation # [id number]
[2022-01-24 17:30] VITALS: BP 120/76
== END 2022-01-24 17:30 | disposition home or self-care (01) ==
LOC: EDUNIT# 16:18 → ER 16:20
DX: S92.355A Nondisplaced fracture of fifth metatarsal bone, left foot, initial encounter for closed fracture (principal); X50.1XXA Overexertion from prolonged static or awkward postures, initial encounter
CPT/HCPCS: 73630; 99282; L2114

== ENCOUNTER 2022-04-24 05:37 | Outpatient (CLI) | payer MEDICARE, MEDICAID ==
[~2022-04-24] VITALS: Ht 154.9 cm; Wt 80.9 kg
[2022-04-24] MEDS ORDERED: LEVO125T6 PO (14:39)
[2022-04-24] MEDS ORDERED: [UNRECOGNIZED DRUG - OTHER] (14:40)
[2022-04-24] MEDS ORDERED: PNV-9 PO (14:40)
== END 2022-04-24 15:04 | disposition home or self-care (01) ==
LOC: PREOP 05:37
PROVIDERS: ATTEND Obstetrics & Gynecology
DX: Z01.818 Encounter for other preprocedural examination (principal)

== ENCOUNTER → 2022-04-26 | Outpatient (CLI) | payer MEDICARE, MEDICAID ==
[~2022-04-26] MED LIST changes: +LEVO125T6 PO; +PNV-9 PO; +[UNRECOGNIZED DRUG - OTHER]
[2022-04-26 15:41] LABS: URINE CREATININE FOR RATIO 16 MG/DL (30-125)
[2022-04-26 15:42] LABS: URINE PROTEIN FOR RATIO ONLY < 6 MG/DL (6-12)
== END ==
LOC: LABNPT 14:38
PROVIDERS: ATTEND Obstetrics & Gynecology
DX: O13.9 Gestational [pregnancy-induced] hypertension without significant proteinuria, unspecified trimester (principal); Z3A.00 Weeks of gestation of pregnancy not specified
CPT/HCPCS: 82570; 84156

== ENCOUNTER 2022-05-01 05:41 | Inpatient (IN) | payer OTHER, MEDICAID ==
[2022-05-01] VITALS (10 sets, daily range): BP systolic 102–145; BP diastolic 53–85
[~2022-05-01] VITALS: Ht 157.5 cm; Wt 80.4 kg
[2022-05-01] MEDS ORDERED: metroNIDAZOLE 500MG/100ML IVPB 100 ML IV ONE (05:45)
[2022-05-01] MEDS ORDERED: ceFAZolin INJECTION 1,000 MG in NS (IVPB) 50 ML IV ONE (05:45)
[2022-05-01] MEDS ORDERED: LACTATED RINGERS 1,000 ML IV PRN ×2 (06:00)
[2022-05-01] MEDS ORDERED: METOCLOPRAMIDE INJ 10 MG/2 ML (REGLAN) IV ONE (06:00)
[2022-05-01] MEDS ORDERED: FAMOTIDINE 20MG/2ML IV (PEPCID) IV ONE (06:00)
[2022-05-01] MEDS ORDERED: CITRIC ACID/SOB CIT (BICITRA) 30 ML UDC PO ONE (06:00)
[2022-05-01 06:21] LABS: BASOPHILS % (AUTO) 0 % (0-10)
[2022-05-01 06:22] LABS: EOSINOPHILS # (AUTO) 0.2 10^3/uL (0.0-0.3); EOSINOPHILS % (AUTO) 2 % (0-10); HEMATOCRIT 34 % (35-52); HEMOGLOBIN 10.8 g/dL (11.5-16.0); LYMPHOCYTES # (AUTO) 1.6 10^3/uL (1.0-4.0); LYMPHOCYTES % (AUTO) 15 % (12-44); MEAN CORPUSCULAR HEMOGLOBIN 26 pg (25-34); MEAN CORPUSCULAR HGB CONC 32 g/dL (32-36); MEAN CORPUSCULAR VOLUME 80 fL (80-99); MONOCYTES # (AUTO) 0.9 10^3/uL (0.0-1.0); MONOCYTES % (AUTO) 9 % (0-12); NEUTROPHILS # (AUTO) 7.6 10^3/uL (1.8-7.8); NEUTROPHILS % (AUTO) 73 % (42-75); PLATELET COUNT 239 10^3/uL (130-400); WHITE BLOOD COUNT 10.5 10^3/uL (4.3-11.0)
[2022-05-01 06:25] LABS: SMEAR SCAN COMMENT YES
[2022-05-01] MEDS ORDERED: FLU QUADRIvalent (6 months+) 60 mcg/0.5 ml 2022-23 (Fluzone) IM ONE (06:45)
[2022-05-01] MEDS ORDERED: OXYTOCIN PRE-MIX DRIP 1,000 ML IV ONE (07:12)
[2022-05-01] MEDS ORDERED: fentaNYL INJ 100 MCG/2 ML AMP ONE (07:12)
--- NOTE | 2022-05-01 07:21 | History & Physical-OB ---
OB - Chief Complaint & HPI Date/Time Date of Admission: Date of Admission: May 01, 2022 at 05:41 Date seen by a Provider: May 01, 2022 Time Seen by a Provider: 07:05 Chief Complaint/History OB-Reason for Admission/Chief: Section Hx : 5 Hx Para: 4 Expected Date of Delivery: May 08, 2022 Gestational Age in Weeks: 39 Gestational Age in Days: 0 Indication for : desires repeat Admission Nurse Assessment Rev: Yes Allergies and Home Medications Allergies Coded Allergies: No Known Drug Allergies (Unverified , 04/24/22) Patient Home Medication List Home Medication List Reviewed: Yes Brexpiprazole (Rexulti) 1 Mg Tablet, (Reported) Entered as Reported by: VANESSA JERONIMO on 12/03/21241 Last Action: Reviewed Clonazepam (Clonazepam) 0.5 Mg Tablet, (Reported) Entered as Reported by: VANESSA JERONIMO on 12/03/21241 Last Action: Reviewed Levothyroxine Sodium (Levothyroxine Sodium) 125 Mcg Tablet, 125 MCG PO DAILY, (Reported) Entered as Reported by: JOSIAH SHOEMAKER on 04/24/22 1439 Last Action: Reviewed Pnv 119/Iron Fum/Folic Acid ( 19 Tablet) Unknown Strength Tablet, Unknown Dose PO, (Reported) Entered as Reported by: JOSIAH SHOEMAKER on 04/24/22 1440 Last Action: Reviewed [Collagen Chews] Unknown Strength , Unknown Dose, (Reported) Entered as Reported by: JOSIAH SHOEMAKER on 04/24/22 1440 Last Action: Reviewed Discontinued Medications Cefdinir (Cefdinir) 300 Mg Capsule, 300 MG PO BID Discontinued Reason: No Longer Taking Prescribed by: PAULA HONEYCUTT on 12/03/21 035 Docusate Sodium (Docusate Sodium) 100 Mg Capsule, 100 MG PO BID PRN for CONSTIPATION-1ST LINE Discontinued Reason: No Longer Taking Prescribed by: MONSE BALES on 08/01/18 07 Hydrocodone Bit/Acetaminophen (Lortab 5 Mg Tablet) 1 Tab Tab, 1-2 TAB PO Q4H PRN for PAIN-MODERATE Discontinued Reason: No Longer Taking Prescribed by: MONSE BALES on 08/01/18 07 Ibuprofen (Ibu) 600 Mg Tablet, 600 MG PO Q6H Discontinued Reason: No Longer Taking Prescribed by: MONSE BALES on 08/01/18 0725 Levothyroxine Sodium (Euthyrox) 100 Mcg Tablet, (Reported) Discontinued Reason: Prescription changed Entered as Reported by: VANESSA JERONIMO on 12/03/21 0242 Ondansetron (Ondansetron Odt) 4 Mg Tab.rapdis, 4 MG PO Q6H PRN for NAUSEA/VOMITING Discontinued Reason: No Longer Taking Prescribed by: PAULA HONEYCUTT on 12/03/21 0354 OB - History Hx of Present Care: Yes Ultrasounds: Normal mid trimester US Obstetrical Complications: None Medical Complications: Other (Hep C carrier) Delivery History Adverse Rxn to Tranfusion: No Patient Past Medical History Hx of hypothyroidism - pt reports she use to take Synthroid but has not taken for several years, TSH not recently checked. Illicit drug use - hx PSH: C/S x 3 Social History/Family History 2nd Hand Smoke Exposure: No Immunizations Influenza Vaccine Up-to-Date: No; Not Current First/Initial COVID19 Vaccine: 12/2020 Second COVID19 Vaccination: 12/2020 COVID19 Vaccine Data Migration Lead: Moderna OB - Admission Exam Physical Exam Vitals: Vital Signs 05/01/22 06:00 Temp 37.0 Pulse 96 Resp 18 B/P (MAP) 145/85 (105) Pulse Ox 97 O2 Delivery Room Air HEENT: NCAT Heart: Rhythm Normal Lungs: Clear Abdomen: Gravid Extremities: Normal Reflexes: Normal Heart Rate: 130's Accelerations: Accelerations Present Decelerations: No Decelerations Short Term Variability: Present Alf Variability: Average (6-25) Contractions on Admission: >10 Minutes Apart Intensity: Mild Labs Laboratory Tests Test 05/01/22 05:45 05/01/22 06:05 Range/Units White Blood Count 10.5 4.3-11.0 10^3/uL Red Blood Count 4.20 3.80-5.11 10^6/uL Hemoglobin 10.8 L 11.5-16.0 g/dL Hematocrit 34 L 35-52 % Mean Corpuscular Volume 80 80-99 fL Mean Corpuscular Hemoglobin 26 25-34 pg Mean Corpuscular Hemoglobin Concent 32 32-36 g/dL Red Cell Distribution Width 13.8 10.0-14.5 % Platelet Count 239 130-400 10^3/uL Mean Platelet Volume 13.0 H 9.0-12.2 fL Immature Granulocyte % (Auto) 1 % Neutrophils (%) (Auto) 73 42-75 % Lymphocytes (%) (Auto) 15 12-44 % Monocytes (%) (Auto) 9 0-12 % Eosinophils (%) (Auto) 2 0-10 % Basophils (%) (Auto) 0 0-10 % Neutrophils # (Auto) 7.6 1.8-7.8 10^3/uL Lymphocytes # (Auto) 1.6 1.0-4.0 10^3/uL Monocytes # (Auto) 0.9 0.0-1.0 10^3/uL Eosinophils # (Auto) 0.2 0.0-0.3 10^3/uL Basophils # (Auto) 0.0 0.0-0.1 10^3/uL Immature Granulocyte # (Auto) 0.2 H 0.0-0.1 10^3/uL Percent Immature Platelet Fraction 18.7 H 0.0-7.6 % Smear Scan YES OB - Assessment/Plan/Diagnosis Assessment Assessment: section Admission Dx 31 y o @ 39 weeks Previous GBS neg Hep C + Admission Status: Inpatient Order (span 2 midnights) Reason for Inpatient Admission: RLTCS at 39 weeks Plan Plan: Section MONSE BALES DO May 01, 2022 07:21
[2022-05-01 07:22] LABS: AMPHETAMINE SCREEN, URINE NEGATIVE (NEGATIVE); BARBITURATE SCREEN URINE NEGATIVE (NEGATIVE); BENZODIAZEPINES SCREEN URINE POSITIVE (NEGATIVE); CANNABINOID SCREEN, URINE POSITIVE (NEGATIVE); COCAINE SCREEN URINE NEGATIVE (NEGATIVE); METHADONE STAT NEGATIVE (NEGATIVE); OPIATE SCREEN URINE NEGATIVE (NEGATIVE); OXYCODONE STAT NEGATIVE (NEGATIVE); PROPOXYPHENE STAT NEGATIVE (NEGATIVE); TRICYCLIC ANTIDEPRESSANTS SCRE NEGATIVE (NEGATIVE)
[2022-05-01] MEDS ORDERED: NALOXONE 0.4 MG/ML 1 ML (NARCAN) VIAL IV PRN (07:30)
[2022-05-01] MEDS ORDERED: TETANUS,DIPTH,PERTUSS P/F (BOOSTRIX) 0.5 ML VIAL IM SCH (07:30)
[2022-05-01] MEDS ORDERED: ONDANSETRON 4 MG/2 ML (SDV) Z0FRAN IVP PRN (07:30)
[2022-05-01] MEDS ORDERED: MEASLES,MUMPS,RUBELLA 1 EA INJ SC SCH (07:30)
[2022-05-01] MEDS ORDERED: PHENYLEPHRINE 100 MCG/ML 10 ML (ANESTHESIA) SYR ONE (07:40)
[2022-05-01] MEDS ORDERED: BUPIVACAINE 0.5% 30 ML (SENSORCAINE) VIAL ONE (07:51)
[2022-05-01] MEDS: OXYTOCIN PRE-MIX DRIP 500 ML IV SCH ×2 (08:04→12:27)
--- NOTE | 2022-05-01 08:09 | Discharge Inst-Women's Service ---
Discharge Inst-Women's Serv Depart Medication/Instructions New, Converted or Re-Newed RX: Transmitted to Pharmacy Final Diagnosis POD 2 RLTCS Problems Reviewed?: Yes Consults/Follow Up Additional Follow Up: Yes Orders/Referrals Dr. Monk/ Peg in 7-10 days and in 6 weeks Activity Activity: Activity as Tolerated Driving Instructions: No Driving for 1 Week NO SMOKING: NO SMOKING Nothing Inside Vagina: No Douching, No [employer], No Tampons Diet Discharge Diet: No Restrictions Symptoms to Report to : Bleeding Excessive, Pain Increased, Fever Over 101 Degrees F, Vaginal Bleeding Increase, Questions/Concerns For Any Problems or Questions: Contact Your Physician Skin/Wound Care Infection Signs and Symptoms: Increased Redness, Foul Odor of Wound, Increased Drainage, Skin Itchy or Has a Rash, Increased Swelling, Temperature Above 101 F Operative Area Clean and Dry: Keep Incision Clean/Dry Stitches/Ravi/Dermabond: Dermabond, Care of Stitches Bathing Instructions: MONSE Hoffman DO May 01, 2022 08:09
[2022-05-01] MEDS ORDERED: DOCU100C37 PO (08:10)
[2022-05-01] MEDS ORDERED: IBUP-844 PO (08:10)
[2022-05-01] MEDS ORDERED: ACHD5005 PO (08:10)
[2022-05-01] MEDS: KETOROLAC 30 MG/ML VIAL IV SCH ×3 (09:06→21:49)
[2022-05-01] MEDS: DOCUSATE SODIUM 100 MG (COLACE) CAP PO SCH ×2 (09:47→21:49)
[2022-05-01] MEDS: HYDROcodone/APAP 5 MG/325 MG (LORTAB) TAB PO PRN (12:18)
[2022-05-01] MEDS: CATHETER FLUSH 10 ML SYR IV SCH ×2 (14:00→21:49)
--- NOTE | 2022-05-01 15:09 | OPERATIVE REPORT ---
DATE OF SERVICE: PREOPERATIVE DIAGNOSES: 1. A 31-year-old G5, P4 at 39 weeks. 2. Previous section. POSTOPERATIVE DIAGNOSES: 1. A 31-year-old G5, P4 at 39 weeks. 2. Previous section. PROCEDURE: Repeat low transverse section. SURGEON: Mario Bales DO ANESTHESIA: Spinal. ESTIMATED BLOOD LOSS: 500 mL. URINE OUTPUT: 125 mL. FLUIDS: 1400 mL lactated Ringer's solution. FINDINGS: A live male infant weighing 8 pounds 3 ounces, Apgars of 8 and 8. Grossly normal appearing uterus, bilateral fallopian tubes and ovaries. SPECIMEN SENT: Placenta. INDICATIONS FOR PROCEDURE: This 31-year-old female is a patient who had sought care in my office. was complicated with a history of illicit drug use. However, she remained abstinent from this throughout the according to the patient. She also has a history of chronic hepatitis C. Her was scheduled for 39 weeks. We discussed her care, the risk of . In the preoperative area again, risks were reviewed including risk of bleeding, infection, damage to surrounding structures including, but not limited to bowel, bladder, ureter, kidneys, possible need for reoperation, postoperative complications that may occur, recovery timeframe, risk from anesthesia, hospital stay and even . After everything was discussed in detail the patient in detail, consent was obtained, the patient was taken to the operating room. OPERATIVE REPORT IN DETAIL: Once in the operating room, spinal analgesia was found to be adequate. She was placed in the supine position with leftward tilt, prepped and draped in normal sterile fashion. Timeout was performed and anesthesia was tested to make a Pfannenstiel skin incision through the previously existing scar using knife and carried down to underlying fascia using Bovie cautery. The fascial incision extended laterally using Bovie cautery. The superior aspect of fascial incision was then grasped with Kely clamps, tented up and dissected off the underlying rectus muscles. The inferior aspect of the fascial incision was then grasped with Kely clamps, tented up and dissected off the underlying rectus muscles. Rectus muscles were dissected down the midline sharply, which exposed the peritoneum, which I entered bluntly and extended using blunt traction. Temo ring retractor was placed in the peritoneal incision, which offers excellent lateral sidewall retraction. I identified the lower uterine segment, which was found to be thinned out and make a low transverse incision to the vesicouterine peritoneum and bluntly dissected this off the lower uterine segment, creating a bladder flap. I then proceeded with myotomy until membranes were visualized, at which point I extended the uterine incision laterally and superiorly using bandage scissors. Amniotomy was then performed using Allis clamp. Clear fluid was noted. Infant was found in vertex presentation. With gentle fundal pressure, the 's head was elevated up to the incision and delivered through the incision where the nares and oropharynx were bulb suctioned and nuchal cord was reduced x1. Anterior and posterior shoulders were delivered. was then brought to the operative field with cord doubly clamped and cut and was handed off to waiting nurses in attendance. Cord blood was collected, three-vessel cord with intact placenta was delivered spontaneously thereafter. IV Pitocin was initiated to facilitate uterine contraction. Uterine fundus confirmed by manual massage. Uterus was then exteriorized and cleared of all endometrial clots and debris. I then proceeded with closing the uterine incision using 0 Vicryl suture in running locked fashion. A second layer of imbricating 0 Monocryl was placed. Excellent hemostasis was noted after doing this. I then placed the uterus back in the pelvis and copiously irrigated the pelvis using normal saline. Once again, no active bleeding noted from any of my dissection planes, I placed Interceed antiadhesive over my low transverse incision. I removed the Temo ring retractor and then proceeded with closing the peritoneum using 3-0 Vicryl suture in a running fashion. The rectus muscle reapproximated using 3-0 Vicryl suture in interrupted fashion. The fascia was reapproximated using 0 Vicryl suture in running fashion. Subcutaneous tissue was reapproximated using 3-0 plain interrupted subcutaneous stitch and the skin reapproximated using 4-0 Monocryl in a running subcuticular. Dermabond was applied to incision and sterile dressing with adhesive white tape. The patient tolerated the procedure well and sent to recovery area in stable condition. Lap and sponge counts were correct at the end of the procedure. Instrument counts correct as well. Two grams of Ancef given preoperatively for infection prophylaxis. Job ID: [id number] DocumentID: [id number] Dictated Date: 05/01/2022 08:20:12 Brick Offbearer Date: 05/01/2022 15:08:43 Dictated By: MARIO BALES DO
[2022-05-02 00:45] VITALS: BP 117/69
[2022-05-02 03:10] VITALS: BP 135/78
[2022-05-02] MEDS: KETOROLAC 30 MG/ML VIAL IV SCH (03:10)
[2022-05-02] MEDS: CATHETER FLUSH 10 ML SYR IV SCH (03:11)
[2022-05-02 05:47] LABS: BASOPHILS % (AUTO) 0 % (0-10); EOSINOPHILS # (AUTO) 0.1 10^3/uL (0.0-0.3); EOSINOPHILS % (AUTO) 1 % (0-10); HEMATOCRIT 32 % (35-52); HEMOGLOBIN 9.8 g/dL (11.5-16.0); LYMPHOCYTES # (AUTO) 1.4 10^3/uL (1.0-4.0); LYMPHOCYTES % (AUTO) 11 % (12-44); MEAN CORPUSCULAR HEMOGLOBIN 26 pg (25-34); MEAN CORPUSCULAR HGB CONC 31 g/dL (32-36); MEAN CORPUSCULAR VOLUME 83 fL (80-99); MEAN PLATELET VOLUME 12.7 fL (9.0-12.2); MONOCYTES # (AUTO) 0.9 10^3/uL (0.0-1.0); MONOCYTES % (AUTO) 7 % (0-12); NEUTROPHILS % (AUTO) 79 % (42-75); PLATELET COUNT 214 10^3/uL (130-400); WHITE BLOOD COUNT 12.6 10^3/uL (4.3-11.0)
[2022-05-02 08:00] VITALS: BP 135/77
--- NOTE | 2022-05-02 08:12 | Postpartum Progress Note ---
Note Note Day # 1 Subjective: Patient is without complaints. Ambulating, voiding. Tolerating a regular diet without nausea or vomiting. Normal lochia. Pain is well controlled with oral pain medications. Objective: Physical Exam: General - Alert and oriented, no apparent distress Abdomen - Soft, appropriately tender to palpation, non-distended, fundus firm at umbilicus Extremities - no edema, negative Sd's bilaterally Incision- c/d/i Assessment: POD 1 RLTCS Acute blood loss anemia + Cannaboids/Benzos on UDS Plan: Routine care. Encourage breast feeding. Encourage ambulation. Ferrous sulfate supplementation. Plan for discharge tomorrow Vitals - Labs Vital Signs - I&O Vital Signs Date Time Temp Pulse Resp B/P (MAP) Pulse Ox O2 Delivery O2 Flow Rate FiO2 05/02/22 03:10 36.6 76 16 135/78 (97) 98 Room Air 05/02/22 00:45 36.3 80 16 117/69 (85) 99 Room Air 05/01/22 20:00 36.6 84 16 111/72 (85) 99 Room Air 05/01/22 16:05 36.8 75 16 118/68 (85) 98 Room Air 05/01/22 12:39 Room Air 05/01/22 12:12 36.6 80 18 111/72 (85) 98 Room Air 05/01/22 10:00 36.5 67 18 123/56 (78) 99 Room Air 05/01/22 09:30 36.5 65 18 112/70 (84) 98 Room Air 05/01/22 09:00 Room Air 05/01/22 09:00 36.5 16 118/71 (87) 99 Room Air 05/01/22 08:45 36.5 16 113/76 (88) 98 Room Air 05/01/22 08:45 Room Air 05/01/22 08:30 Room Air 05/01/22 08:30 36.4 67 18 102/66 (78) 98 Room Air 05/01/22 08:30 36.4 18 102/66 (78) 98 Room Air 05/01/22 08:15 Room Air 05/01/22 08:15 36.5 16 106/53 (70) 98 Room Air I & O 05/02/22 07:00 Intake Total 3175 ml Output Total 2125 ml Balance 1050 ml Labs Laboratory Tests 05/02/22 05:33: White Blood Count 12.6H, Red Blood Count 3.82, Hemoglobin 9.8L, Hematocrit 32L, Mean Corpuscular Volume 83, Mean Corpuscular Hemoglobin 26, Mean Corpuscular Hemoglobin Concent 31L, Red Cell Distribution Width 13.9, Platelet Count 214, Mean Platelet Volume 12.7H, Immature Granulocyte % (Auto) 1, Neutrophils (%) (Auto) 79H, Lymphocytes (%) (Auto) 11L, Monocytes (%) (Auto) 7, Eosinophils (%) (Auto) 1, Basophils (%) (Auto) 0, Neutrophils # (Auto) 10.0H, Lymphocytes # (Auto) 1.4, Monocytes # (Auto) 0.9, Eosinophils # (Auto) 0.1, Basophils # (Auto) 0.0, Immature Granulocyte # (Auto) 0.2H MONSE BALES DO May 02, 2022 08:12
[2022-05-02] MEDS: DOCUSATE SODIUM 100 MG (COLACE) CAP PO SCH ×2 (08:15→20:09)
[2022-05-02] MEDS: IBUPROFEN 600 MG (MOTRIN) TAB PO SCH ×3 (08:52→20:09)
[2022-05-02 13:30] VITALS: BP 139/84
--- NOTE | 2022-05-02 13:49 | Anesthesia-Regional Post-Op ---
Regional Patient Condition Mental Status: Alert, Oriented x3 Circulation: Same as Pre-Op Headache: Absent Sensation: Full Recovery Motor Block: Absent Post Op Complications Complications None Follow Up Care/Instructions Patient Instructions None needed. Anesthesia/Patient Condition Patient is doing well, no complaints, stable vital signs, no apparent adverse anesthesia problems. No complications reported per nursing. BUDDY TITUS CRNA May 02, 2022 13:49
[2022-05-02] MEDS ORDERED: FLU QUADRIvalent (6 months+) 60 mcg/0.5 ml 2022-23 (Fluzone) IM ONE (17:45)
[2022-05-02] MEDS: HYDROcodone/APAP 5 MG/325 MG (LORTAB) TAB PO PRN (20:16)
[2022-05-02 20:17] VITALS: BP 127/75
[2022-05-03] MEDS: IBUPROFEN 600 MG (MOTRIN) TAB PO SCH ×2 (02:43→09:49)
[2022-05-03 02:46] VITALS: BP 138/88
[2022-05-03 07:30] VITALS: BP 127/68
[2022-05-03] MEDS ORDERED: FLU QUADRIvalent (6 months+) 60 mcg/0.5 ml 2022-23 (Fluzone) IM ONE (07:45)
--- NOTE | 2022-05-03 08:46 | Postpartum Progress Note ---
Note Note Day # 2 Subjective: Patient is without complaints. Ambulating, voiding. Tolerating a regular diet without nausea or vomiting. Normal lochia. Pain is well controlled with oral pain medications. Objective: Physical Exam: General - Alert and oriented, no apparent distress Abdomen - Soft, appropriately tender to palpation, non-distended, fundus firm at umbilicus Extremities - no edema, negative Sd's bilaterally Incision- c/d/i Assessment: POD 2 RLTCS Acute blood loss anemia Plan: Routine care. Encourage breast feeding. Encourage ambulation. Ferrous sulfate supplementation. Plan for discharge today Vitals - Labs Vital Signs - I&O Vital Signs Date Time Temp Pulse Resp B/P (MAP) Pulse Ox O2 Delivery O2 Flow Rate FiO2 05/03/22 02:46 36.5 88 20 138/88 (105) 96 Room Air 05/02/22 20:17 36.8 103 20 127/75 (92) 97 Room Air 05/02/22 13:30 37.3 89 18 139/84 (102) 97 Room Air Labs Microbiology 05/01/22 MRSA Screen - Final, Complete MRSA not isolated MONSE BALES DO May 03, 2022 8:46 am
[2022-05-03] MEDS: DOCUSATE SODIUM 100 MG (COLACE) CAP PO SCH (09:49)
== END 2022-05-03 12:50 | disposition home or self-care (01) | DRG 787 ==
LOC: EEVIPCON 05:41 → LDRP 05:41
PROVIDERS: ADMIT Obstetrics & Gynecology; ATTEND Obstetrics & Gynecology
PROC: 10D00Z1 Extraction of Products of Conception, Low, Open Approach (ICD-10-PCS; principal; 2022-05-01 07:16)
DX: O34.211 Maternal care for low transverse scar from previous cesarean delivery (principal); D62 Acute posthemorrhagic anemia; O98.42 Viral hepatitis complicating childbirth; O98.52 Other viral diseases complicating childbirth; O99.323 Drug use complicating pregnancy, third trimester; Z37.0 Single live birth; B18.2 Chronic viral hepatitis C; F12.90 Cannabis use, unspecified, uncomplicated; F13.90 Sedative, hypnotic, or anxiolytic use, unspecified, uncomplicated; Z3A.39 39 weeks gestation of pregnancy; O90.81 Anemia of the puerperium; Z23 Encounter for immunization
CPT/HCPCS: 36415; 80306; 85025; 86850; 86900; 86901; 87081; 90686; 94664